=== PATIENT | male | born 1995 | race Caucasian/White ===

== ENCOUNTER 2017-02-15 23:04 | Inpatient (IN) ==
[2017-02-16 00:10] LABS: Bilirubin,Urine Negative (Negative); Blood,Urine Negative (Negative); Clarity,Urine Clear (Clear); Color,Urine Yellow (Yellow); Glucose,Urine (UA) Normal (Normal); Ketones,Urine Negative (Negative); Leukocyte Esterase,Urine Negative (Negative); Nitrite,Urine Negative (Negative); Protein,Urine Negative (Neg-Trace); Specific Gravity,Urine 1.009 (1.010-1.025); Urobilinogen,Urine Normal (Normal)
[2017-02-16 00:15] LABS: Amphetamine Screen,Urine Negative ng/mL (Cutoff=1000); Barbiturate Screen,Urine Negative ng/mL (Cutoff=200); Benzodiazepines Screen,Urine Negative ng/mL (Cutoff=200); Cannabinoid Screen,Urine Positive ng/mL (Cutoff = 50); Cocaine Screen,Urine Negative ng/mL (Cutoff= 300); Opiate Screen,Urine Negative ng/mL (Cutoff=300); Phencyclidine Screen,Urine Negative ng/mL (Cutoff=25)
[2017-02-16 00:23] LABS: Basophils % 0.3 %; Eosinophils # 0.1 K/mcL (0.0-0.6); Eosinophils % 0.4 %; Hematocrit 46.5 % (37.5-50.1); Hemoglobin 16.6 g/dL (12.9-16.9); Immature Granulocytes % 0.6 % (0-4); Lymphocytes % 19.5 %; Mean Corpuscular HGB Conc 35.7 g/dL (31.6-35.5); Mean Corpuscular Hemoglobin 29.9 pg (28.0-33.3); Mean Corpuscular Volume 83.8 fL (83.0-100.0); Mean Platelet Volume 10.8 fL (9.4-12.4); Monocytes # 1.2 K/mcL (0.0-1.3); Monocytes % 7.5 %; Neutrophils # 11.2 K/mcL (1.6-8.9); Platelet Count 245 K/mcL (140-400); Red Blood Count 5.55 M/mcL (4.19-5.50); Segmented Neutrophils % 71.7 %
[2017-02-16 00:35] LABS: BUN/Creatinine Ratio 7 (6-26); Blood Urea Nitrogen 6 mg/dL (8-26); Calcium 9.4 mg/dL (8.6-10.8); Carbon Dioxide 22 mEq/L (19-29); Chloride 104 mEq/L (98-109); Glucose 96 mg/dL (70-99); Osmolality,Calculated 285 (280-300); Potassium 3.4 mEq/L (3.5-4.5); Sodium 139 mEq/L (136-145); eGFR For African Americans > 60 (> 60); eGFR For Non-African Americans > 60 (> 60)
[2017-02-16 00:54] LABS: Acetaminophen < 1.0 mcg/mL (10-30); Ethanol 12 mg/dL (0-10); Salicylate < 5.0 mg/dL (15-30)
--- NOTE | 2017-02-16 02:23 | Emergency Department Note ---
Disposition Clinical Impression: Schizoaffective disorder Qualifiers: Schizoaffective disorder type: unspecified Qualified Code(s): F25.9 - Schizoaffective disorder, unspecified Disposition: Admitted As Inpatient Condition: Good Time of Disposition: 02:24 General Adult HPI - General Chief complaint: ED Psychiatric Symptoms Stated complaint: "SI/Threating to Kill Parents" Time Seen by Provider: 02/15/17 23:58 Source: family Limitations: no limitations Nursing Notes Reviewed: Yes Vital Signs Reviewed: Yes - History of Present Illness HPI Narrative: Patient complaining of being manic for approximately 1 month. States he is not sleeping at night. Father in room stating that the patient threatened to kill him and his yesterday. Patient's only complaint currently is of a headache. Pain Scale: 7 - Related Data Allergies Allergy/AdvReac Type Severity Reaction Status Date / Time No Known Allergies Allergy Verified 02/15/17 23:30 All systems ED: reviewed and negative except as stated. Constitutional: Denies: fever, chills ENT ED: Denies: congestion Cardiovascular: Denies: chest pain, palpitations, dyspnea on exertion, syncope Respiratory: Denies: cough, dyspnea Gastrointestinal: Denies: abdominal pain, nausea, vomiting, diarrhea, hematemesis, melena, hematochezia Genitourinary: Denies: urgency, dysuria, frequency, hematuria Musculoskeletal: Denies: back pain, neck pain Integumentary: Denies: rash Neurological: Reports: headache. Denies: weakness, numbness Psychiatric: Reports: homicidal thoughts. Denies: suicidal thoughts, auditory hallucinations, visual hallucinations Past Medical History - Past Medical History Medical history: Reports: no medical history Psychiatric history: Reports: schizophrenia, previous psychiatric hospitalization - Social History Smoking Status: Current every day smoker Alcohol use: Reports: occasionally Drug use: Reports: none Physical Exam - General Limitations: no limitations General appearance: alert, in no apparent distress - Head Head exam: atraumatic, normocephalic, normal inspection - Eye Eye exam: Present: normal appearance, PERRL, EOMI. Absent: scleral icterus - ENT ENT exam: normal exam, normal oropharynx, mucous membranes moist - Neck Neck exam: Present: normal inspection, full ROM, trachea midline. Absent: tenderness, meningismus, lymphadenopathy - Chest Chest inspection: Present: normal inspection - Respiratory Respiratory exam: Present: normal lung sounds bilaterally. Absent: respiratory distress - Cardiovascular Cardiovascular exam: Present: regular rate, normal rhythm, normal heart sounds - Abdominal Exam Abdominal exam: Present: soft, Non-Tender, normal bowel sounds. Absent: tenderness, distention, guarding, rebound, rigidity - Extremities Exam Extremities exam: Present: normal inspection, full ROM, normal capillary refill. Absent: tenderness, pedal edema - Back Exam Back exam: Present: normal inspection, full ROM. Absent: tenderness - Neurological Exam Neurological exam: Present: alert, oriented X3 - Psychiatric Psychiatric exam: Present: manic, homicidal ideation - Skin Skin exam: Present: warm, dry, intact, normal color. Absent: rash, cyanosis Course Course Narrative: Patient presenting to the emergency department with father. He complained of a headache. States he does have a history of schizoaffective disorder that he has been on several different medications for. He is currently on Haldol for this. He states that he has had shama for the past proximally one month. He states he is not sleeping at night. The father reports that yesterday he threatened to kill his mother and father. The patient does not deny this. He states he feels safe while here he has no suicidal or homicidal intentionally is sitting in the bed in the hospital. He states he does have but denies shortness of breath or chest pain or fevers. He has no medical complaints other than the headache. We will get a basic workup on patient and contact [facility]. During exam patient's eyes do not make contact frequently with mine. They are frantically searching the room. - Reevaluation(s) Reevaluation #1: [facility]A has recommended inpatient psychiatric care for the patient. We will slip him and keep him in the hospital. Time: 02:23 Vital Signs Temperature 98 F 02/15/17 23:25 Pulse Rate 115 02/15/17 23:25 Respiratory Rate 16 02/15/17 23:25 Blood Pressure 143/82 02/15/17 23:25 O2 Sat by Pulse Oximetry 97 02/15/17 23:25 Temperature 97 F L 02/16/17 02:54 Pulse Rate 79 02/16/17 02:54 Respiratory Rate 16 02/16/17 02:54 Blood Pressure 138/95 02/16/17 02:54 O2 Sat by Pulse Oximetry 97 02/15/17 23:25 Oxygen Delivery Oxygen Delivery Room Air Medical Decision Making - Medical Records Medical records reviewed: Yes I reviewed the patient's medical records. - Lab Data Lab results reviewed: Yes I reviewed the patient's lab results. Result diagrams: 02/16/17 00:18 02/16/17 00:18 Lab Results 02/15/17 02/15/17 02/16/17 Range/Units 23:50 23:50 00:18 WBC 15.5 H (4.3-11.1) K/mcL RBC 5.55 H (4.19-5.50) M/mcL Hgb 16.6 (12.9-16.9) g/dL Hct 46.5 (37.5-50.1) % MCV 83.8 (83.0-100.0) fL MCH 29.9 (28.0-33.3) pg MCHC 35.7 H (31.6-35.5) g/dL RDW 13.0 (11.5-14.5) % Plt Count 245 (140-400) K/mcL MPV 10.8 (9.4-12.4) fL Immature Gran % 0.6 (0-4) % Seg Neutrophils % 71.7 % Lymphocytes % 19.5 % Monocytes % 7.5 % Eosinophils % 0.4 % Basophils % 0.3 % Neutrophils # 11.2 H (1.6-8.9) K/mcL Lymphocytes # 3.0 (0.6-4.6) K/mcL Monocytes # 1.2 (0.0-1.3) K/mcL Eosinophils # 0.1 (0.0-0.6) K/mcL Basophils # 0.0 (0.0-0.2) K/mcL Sodium (136-145) mEq/L Potassium (3.5-4.5) mEq/L Chloride (98-109) mEq/L Carbon Dioxide (19-29) mEq/L BUN (8-26) mg/dL Creatinine (0.72-1.25) mg/dL Est GFR ( Amer) (> 60) Est GFR (Non-Af Amer) (> 60) BUN/Creatinine Ratio (6-26) Glucose (70-99) mg/dL Calculated Osmolality (280-300) Calcium (8.6-10.8) mg/dL Urine Color Yellow (Yellow) Urine Clarity Clear (Clear) Urine pH 6.0 (5.0-8.0) pH Units Ur Specific [place] 1.009 L (1.010-1.025) Urine Protein Negative (Neg-Trace) mg/dL Urine Glucose (UA) Normal (Normal) mg/dL Urine Ketones Negative (Negative) mg/dL Urine Blood Negative (Negative) Urine Nitrite Negative (Negative) Urine Bilirubin Negative (Negative) Urine Urobilinogen Normal (Normal) mg/dL Ur Leukocyte Esterase Negative (Negative) Salicylates (15-30) mg/dL Urine Opiates Screen Negative (Seedre=487) ng/mL Acetaminophen (10-30) mcg/mL Ur Barbiturates Screen Negative (Awnidw=537) ng/mL Ur Phencyclidine Scrn Negative (Cutoff=25) ng/mL Ur Amphetamines Screen Negative (Fsorzr=2153) ng/mL U Benzodiazepines Scrn Negative (Szqbkt=111) ng/mL Urine Cocaine Screen Negative (Cutoff= 300) ng/mL U Marijuana (THC) Screen Positive H (Cutoff = 50) ng/mL Ethyl Alcohol (0-10) mg/dL 02/16/17 Range/Units 00:18 WBC (4.3-11.1) K/mcL RBC (4.19-5.50) M/mcL Hgb (12.9-16.9) g/dL Hct (37.5-50.1) % MCV (83.0-100.0) fL MCH (28.0-33.3) pg MCHC (31.6-35.5) g/dL RDW (11.5-14.5) % Plt Count (140-400) K/mcL MPV (9.4-12.4) fL Immature Gran % (0-4) % Seg Neutrophils % % Lymphocytes % % Monocytes % % Eosinophils % % Basophils % % Neutrophils # (1.6-8.9) K/mcL Lymphocytes # (0.6-4.6) K/mcL Monocytes # (0.0-1.3) K/mcL Eosinophils # (0.0-0.6) K/mcL Basophils # (0.0-0.2) K/mcL Sodium 139 (136-145) mEq/L Potassium 3.4 L (3.5-4.5) mEq/L Chloride 104 (98-109) mEq/L Carbon Dioxide 22 (19-29) mEq/L BUN 6 L (8-26) mg/dL Creatinine 0.86 (0.72-1.25) mg/dL Est GFR ( Amer) > 60 (> 60) Est GFR (Non-Af Amer) > 60 (> 60) BUN/Creatinine Ratio 7 (6-26) Glucose 96 (70-99) mg/dL Calculated Osmolality 285 (280-300) Calcium 9.4 (8.6-10.8) mg/dL Urine Color (Yellow) Urine Clarity (Clear) Urine pH (5.0-8.0) pH Units Ur Specific [place] (1.010-1.025) Urine Protein (Neg-Trace) mg/dL Urine Glucose (UA) (Normal) mg/dL Urine Ketones (Negative) mg/dL Urine Blood (Negative) Urine Nitrite (Negative) Urine Bilirubin (Negative) Urine Urobilinogen (Normal) mg/dL Ur Leukocyte Esterase (Negative) Salicylates < 5.0 L (15-30) mg/dL Urine Opiates Screen (Ajyxrq=708) ng/mL Acetaminophen < 1.0 L (10-30) mcg/mL Ur Barbiturates Screen (Cqernb=145) ng/mL Ur Phencyclidine Scrn (Cutoff=25) ng/mL Ur Amphetamines Screen (Rrhsbi=9813) ng/mL U Benzodiazepines Scrn (Ipddaj=669) ng/mL Urine Cocaine Screen (Cutoff= 300) ng/mL U Marijuana (THC) Screen (Cutoff = 50) ng/mL Ethyl Alcohol 12 H (0-10) mg/dL Attestation Statement - Attestation Attestation: I, Sarbjit Javed MD, personally evaluated this patient and discussed their management with the resident physician. I reviewed the resident's note and agree with the documented findings, medical decision making, and plan of care. 21-year-old male presents to the emergency department for anxiety and apparently threatened to kill his parents yesterday. He denies any suicidal or homicidal ideation to me. His only complaint is migraine headache. On examination patient is a well-developed well-nourished male in no acute distress. He is alert and cooperative. There is no cyanosis or diaphoresis. Breath sounds are clear and equal bilaterally. Heart regular rate and rhythm. Abdomen soft and nontender with normal bowel sounds. No gross focal neurological deficits. Labs reviewed. [facility] psychiatry service was consulted and evaluated patient in the emergency department and the patient is being admitted to the [facility] psychiatry unit.
[2017-02-16] MEDS ORDERED: Mag Hydrox/Al Hydrox/Simeth 30 ML UDC PO PRN (02:38)
[2017-02-16] MEDS ORDERED: MOM Conc 10 ML UD.LIQ PO PRN (02:38)
[2017-02-16] MEDS ORDERED: hydrOXYzine pamoate 25 MG CAPSULE PO PRN (02:38)
[2017-02-16] MEDS ORDERED: *HR* LORazepam 2 MG/ML VIAL IM PRN (02:38)
[2017-02-16] MEDS ORDERED: Haloperidol Lactate 5 MG/ML VIAL IM PRN (02:38)
[2017-02-16] MEDS ORDERED: Acetaminophen 325 MG TABLET PO PRN (02:38)
[2017-02-16] MEDS ORDERED: OLANZapine 10 MG TAB.RAPDIS PO ONE (02:45)
[2017-02-16] MEDS: traZODone 50 MG TABLET PO PRN ×2 (03:16→20:05)
--- NOTE | 2017-02-16 14:36 | Psychiatry History & Physical ---
Date of Encounter: 02/16/17 Time of Encounter: 12:55 History of Present Illness Patient Stated Chief Complaint: "I had a headache." Medicare Admission Attestation: For traditional Medicare patients the provided hospital inpatient services are reasonable and necessary and in the case of services not specified as inpatient -only under 42 CFR 419.22 (n), that they are appropriately provided as inpatient services in accordance 42 CFR 412.3. For Critical Access Hospital the patient may reasonably be expected to be discharged or transferred to a hospital within 96 hours after admission to the Critical Access Hospital. Admitted From: Emergency Dept History of Present Illness: Mr. No is a 21 year old male with a history of schizophrenia who presents to the hospital initially through the ER because his parents had concerns about his behaviors. Patient was apparently acting oddly at home and threatened to kill his parents. His parents had concerns about his behaviors and brought him to the ER. Patient reports he has been admitted to a couple of different hospitals for psychiatric reasons but he denies auditory hallucinations or paranoia. He is very suspicious and irritable with staff. He does appear to be thought blocking at times to the of the interview. He is somewhat disorganized in his thought process. He reported to one staff member that he was taking his medications and another staff member he reported he has not been taking his Depakote. Patient's father was called by was not available to discuss patient's mental state over the last few weeks. Patient is somewhat hesitant to speak to this provider. He did mention to one staff member that he might try to hurt himself if he is not allowed to leave the hospital. He denies any homicidal ideations. He denies making comments about wanting to hurt his parents yesterday before his arrival to the hospital. He is on Haldol by mouth and decanoate shot as well. Past Med Surg Social Fam HX - Past Medical History Medical history: no medical history - Past Psychiatric History Psychiatric history: Reports: schizophrenia, previous psychiatric hospitalization Past psychiatric history details: Patient has 2 previous hospitalizations for schizophrenia. Family psychiatric history: No Family History of Suicide: None - Past Surgical History Surgical History: no surgical history - Social History Smoking Status: Current every day smoker Smokeless Tobacco Status: No Alcohol use: occasionally Drug use: none Occupational status: unemployed Current living situation: With Family Medications & Allergies Divalproex (24 HR) [Depakote ER (24 HR)] 1,000 mg PO HS 02/16/17 [History] Haloperidol Decanoate [Haldol Decanoate 100] 100 mg IM Q3W 02/16/17 [History] Haloperidol [Haldol] 10 mg PO BID 02/16/17 [History] HydrOXYzine 10 mg PO BID PRN 02/16/17 [History] Allergies No Known Allergies Allergy (Verified 02/15/17 23:30) Review of Systems Constitutional: Denies: fever, chills, weakness, weight change Eyes: Denies: eye pain, vision change Ears, Nose, Throat: Denies: ear pain, throat pain, dental pain, hearing loss, congestion Cardiovascular: Denies: chest pain, palpitations, dyspnea on exertion Respiratory: Denies: cough, dyspnea, wheezes Gastrointestinal: Denies: abdominal pain, nausea, vomiting, diarrhea, constipation Genitourinary male: Denies: urgency, dysuria, frequency, genital lesions Genitourinary female: Denies: urgency, dysuria, frequency, abnormal menses, dyspareunia Musculoskeletal: Denies: joint swelling, joint pain Integumentary: Denies: rash, lesions, pruritus Neurological: Reports: headache Psychiatric: Reports: homicidal ideation, auditory hallucinations, difficulty concentrating, irritability Endocrine: Denies: fatigue, heat or cold intolerance Hematologic/Lymphatic: Denies: easy bruising, lymphadenopathy Allergic/Immunologic: Denies: urticaria, itchy eyes Mental Status Exam Patient orientation: Yes Person, No Time, Yes Circumstance Level of alertness: Alert Patient appearance: Unkempt Behavior: uncooperative, guarded, suspicious Eye contact: Intense Contact Mood description: Euthymic/stable Affect description: flat, incongruent with mood Speech pattern: Slowed Speech volume: Normal Thought process: Thought Blocking Thought content: No Suicidal ideation, No Homicidal ideation Perceptual disturbances: Yes Auditory hallucinations Attention span: Capable of Focused Attention Memory description: Grossly Intact Patient reliability: Not Reliable Historian Intelligence estimate: Average Judgment: Limited Insight: Minimal Exam - HEENT Head exam IM: Present: atraumatic, normal inspection Eye exam IM: Present: normal appearance - Neurological Neurological exam IM: Present: alert, CN II-XII intact - Extremities Extremities exam IM: Present: full ROM - Skin Skin exam IM: Present: dry, warm Results - Vital Signs Vital signs: Temp Pulse Resp BP Pulse Ox 97.8 F 87 16 131/94 97 02/16/17 09:00 02/16/17 09:00 02/16/17 09:00 02/16/17 09:00 02/15/17 23:25 - Labs Labs: Laboratory Last Values WBC 15.5 K/mcL (4.3-11.1) H 02/16/17 00:18 RBC 5.55 M/mcL (4.19-5.50) H 02/16/17 00:18 Hgb 16.6 g/dL (12.9-16.9) 02/16/17 00:18 Hct 46.5 % (37.5-50.1) 02/16/17 00:18 MCV 83.8 fL (83.0-100.0) 02/16/17 00:18 MCH 29.9 pg (28.0-33.3) 02/16/17 00:18 MCHC 35.7 g/dL (31.6-35.5) H 02/16/17 00:18 RDW 13.0 % (11.5-14.5) 02/16/17 00:18 Plt Count 245 K/mcL (140-400) 02/16/17 00:18 MPV 10.8 fL (9.4-12.4) 02/16/17 00:18 Immature Gran % 0.6 % (0-4) 02/16/17 00:18 Seg Neutrophils % 71.7 % 02/16/17 00:18 Lymphocytes % 19.5 % 02/16/17 00:18 Monocytes % 7.5 % 02/16/17 00:18 Eosinophils % 0.4 % 02/16/17 00:18 Basophils % 0.3 % 02/16/17 00:18 Neutrophils # 11.2 K/mcL (1.6-8.9) H 02/16/17 00:18 Lymphocytes # 3.0 K/mcL (0.6-4.6) 02/16/17 00:18 Monocytes # 1.2 K/mcL (0.0-1.3) 02/16/17 00:18 Eosinophils # 0.1 K/mcL (0.0-0.6) 02/16/17 00:18 Basophils # 0.0 K/mcL (0.0-0.2) 02/16/17 00:18 Sodium 139 mEq/L (136-145) 02/16/17 00:18 Potassium 3.4 mEq/L (3.5-4.5) L 02/16/17 00:18 Chloride 104 mEq/L (98-109) 02/16/17 00:18 Carbon Dioxide 22 mEq/L (19-29) 02/16/17 00:18 BUN 6 mg/dL (8-26) L 02/16/17 00:18 Creatinine 0.86 mg/dL (0.72-1.25) 02/16/17 00:18 Est GFR ( Amer) > 60 (> 60) 02/16/17 00:18 Est GFR (Non-Af Amer) > 60 (> 60) 02/16/17 00:18 BUN/Creatinine Ratio 7 (6-26) 02/16/17 00:18 Glucose 96 mg/dL (70-99) 02/16/17 00:18 Calculated Osmolality 285 (280-300) 02/16/17 00:18 Calcium 9.4 mg/dL (8.6-10.8) 02/16/17 00:18 Urine Color Yellow (Yellow) 02/15/17 23:50 Urine Clarity Clear (Clear) 02/15/17 23:50 Urine pH 6.0 pH Units (5.0-8.0) 02/15/17 23:50 Ur Specific [place] 1.009 (1.010-1.025) L 02/15/17 23:50 Urine Protein Negative mg/dL (Neg-Trace) 02/15/17 23:50 Urine Glucose (UA) Normal mg/dL (Normal) 02/15/17 23:50 Urine Ketones Negative mg/dL (Negative) 02/15/17 23:50 Urine Blood Negative (Negative) 02/15/17 23:50 Urine Nitrite Negative (Negative) 02/15/17 23:50 Urine Bilirubin Negative (Negative) 02/15/17 23:50 Urine Urobilinogen Normal mg/dL (Normal) 02/15/17 23:50 Ur Leukocyte Esterase Negative (Negative) 02/15/17 23:50 Salicylates < 5.0 mg/dL (15-30) L 02/16/17 00:18 Urine Opiates Screen Negative ng/mL (Pxwrvb=738) 02/15/17 23:50 Acetaminophen < 1.0 mcg/mL (10-30) L 02/16/17 00:18 Ur Barbiturates Screen Negative ng/mL (Xkxwxd=303) 02/15/17 23:50 Ur Phencyclidine Scrn Negative ng/mL (Cutoff=25) 02/15/17 23:50 Ur Amphetamines Screen Negative ng/mL (Flgsgf=4391) 02/15/17 23:50 U Benzodiazepines Scrn Negative ng/mL (Nfgmni=943) 02/15/17 23:50 Urine Cocaine Screen Negative ng/mL (Cutoff= 300) 02/15/17 23:50 U Marijuana (THC) Screen Positive ng/mL (Cutoff = 50) H 02/15/17 23:50 Ethyl Alcohol 12 mg/dL (0-10) H 02/16/17 00:18 Assessment and Plan (1) Schizoaffective disorder Current visit: Yes Status: Acute Plan: Admit inpatient for safety and stabilization, Close observation, Suicide Precautions per unit protocol, Encourage participation in unit milieu, Group Therapy, Monitor sleep, Monitor appetite Additional Plan: We will admit to 1 a for psychiatric stabilization. Attempt to obtain records and also call family to get further information on patient's history as he is not forthcoming with this information. Depakote level tomorrow. We will restart home meds as it is unclear if patient was taking them appropriately. Risks, benefits, side effects, alternatives discussed w/pt: Yes Patient agreeable to treatment: Yes Estimated Length of Stay (Days): 4 Qualifiers: Schizoaffective disorder type: unspecified Qualified Code(s): F25.9 - Schizoaffective disorder, unspecified
[2017-02-16] MEDS: Nicotine 2 MG GUM BC PRN ×2 (18:04→20:04)
[2017-02-16] MEDS: Divalproex (24 HR) 500 MG TABLET PO SCH (20:05)
[2017-02-17] MEDS: Nicotine 2 MG GUM BC PRN ×3 (09:25→16:56)
--- NOTE | 2017-02-17 11:04 | Psychiatry Progress Note ---
Date of Encounter: 02/17/17 Time of Encounter: 09:30 Subjective Interval history: Patient seen today for follow-up of his schizoaffective disorder. He denies auditory or visual hallucinations but has been witnessed by staff responding to internal stimuli when alone in his room. Patient states he has been taking his meds as prescribed and discussed that his Depakote level was low and patient did not have a clear reason as to why this the case. He is willing to take his meds while in the hospital but seems hesitant to stay here on the unit and is very guarded when discussing his mental health history. Parents were contacted by staff today who reported that he was switched from Invega to Haldol about a year ago and his condition has worsened since he started the Haldol. The last 6 weeks the decanoate Haldol shot seems to make him worse. Patient's family have not been monitoring his medications because he had been doing better for a while. Therefore it is unclear how long patient may have been off his meds but the Depakote level indicates that the patient was not taking them as prescribed. Review of Systems Psychiatric: Reports: homicidal ideation, auditory hallucinations, difficulty concentrating, irritability Objective: Exam Patient orientation: Yes Person, Yes Circumstance Level of alertness: Alert Behavior: uncooperative, guarded, suspicious Psychomotor activity: Normal Eye contact: Fleeting Contact Mood description: Euthymic/stable Affect description: blunted Speech pattern: Normal rate, Normal rhythm, Normal tone Speech volume: Normal Thought process: Circumstantial Thought content: No Suicidal ideation, No Homicidal ideation Perceptual disturbances: Yes Reacting to internal stimuli, Yes Auditory hallucinations Judgment: Limited Insight: Minimal Results - Vital Signs Vital Signs: Temp Pulse Resp BP Pulse Ox 96.8 F L 84 18 149/106 97 02/17/17 09:00 02/17/17 09:00 02/17/17 09:00 02/17/17 09:00 02/15/17 23:25 - Labs Labs: Laboratory Results - last 24 hr 02/17/17 05:54 Valproic Acid 12.99 L Assessment and Plan (1) Schizoaffective disorder Current visit: Yes Status: Acute Plan: Continue hospitalization, Close observation, Suicide Precautions per unit protocol, Encourage participation in unit milieu, Group Therapy, Monitor sleep, Monitor appetite Additional Plan: We will continue Depakote and recheck level in a few days. We will taper Haldol and start second-generation antipsychotic like Abilify as patient did better on INvega than he has done on Haldol per his parents. Monitor for side effects and response to new medications. Risks, benefits, side effects, alternatives discussed w/pt: Yes Patient agreeable to treatment: Yes Qualifiers: Schizoaffective disorder type: unspecified Qualified Code(s): F25.9 - Schizoaffective disorder, unspecified Consult Discharge Plan - Plan Referrals: NO,PCP [Primary Care Provider] -
[2017-02-17] MEDS: *HR* LORazepam 1 MG TABLET PO PRN (13:49)
[2017-02-17] MEDS: ARIPiprazole 5 MG TABLET PO SCH (20:22)
[2017-02-17] MEDS: Divalproex (24 HR) 500 MG TABLET PO SCH (20:23)
--- NOTE | 2017-02-18 11:16 | Psychiatry Progress Note ---
Date of Encounter: 02/18/17 Time of Encounter: 11:14 Subjective Interval history: Patient is seen for follow-up. [facility] in medications reviewed. Staff patient is asking for discharge and anxious to go home. His Depakote level was very low and his medication is being switched from Haldol to Abilify. She denies any side effects. She is irritable and anxious and angry as contributing discharged, does not seem to be interested in treatment with taking medication. Denies suicidal and homicidal ideation. Review of Systems Psychiatric: Reports: homicidal ideation, auditory hallucinations, difficulty concentrating, irritability Objective: Exam Patient orientation: Yes Person, Yes Time, Yes Place Level of alertness: Alert Patient appearance: Appropriate, Well Groomed Behavior: cooperative, agitated, hostile Psychomotor activity: Normal Eye contact: No Eye Contact Mood description: Angry, Anxious, Irritable Affect description: congruent with mood, constricted, anxious Speech pattern: Normal rate, Normal rhythm, Normal tone Speech volume: Normal Thought process: Linear, Goal Oriented Thought content: No Suicidal ideation, No Homicidal ideation, No Overt delusions Perceptual disturbances: No Auditory hallucinations, No Visual hallucinations Judgment: Fair Insight: Partial Results - Vital Signs Vital Signs: Temp Pulse Resp BP Pulse Ox 97.5 F L 72 16 136/98 97 02/18/17 08:47 02/18/17 08:47 02/18/17 08:47 02/18/17 08:47 02/15/17 23:25 Assessment and Plan (1) Schizoaffective disorder Current visit: Yes Status: Acute Plan: Continue hospitalization, Close observation, Suicide Precautions per unit protocol, Encourage participation in unit milieu, Group Therapy, Monitor sleep, Monitor appetite Additional Plan: We will check a Depakote level Risks, benefits, side effects, alternatives discussed w/pt: Yes Patient agreeable to treatment: Yes Qualifiers: Schizoaffective disorder type: unspecified Qualified Code(s): F25.9 - Schizoaffective disorder, unspecified Consult Discharge Plan - Plan Referrals: NO,PCP [Primary Care Provider] -
[2017-02-18] MEDS: Nicotine 2 MG GUM BC PRN ×2 (11:28→20:18)
[2017-02-18] MEDS: Divalproex (24 HR) 500 MG TABLET PO SCH (20:08)
[2017-02-18] MEDS: ARIPiprazole 5 MG TABLET PO SCH (20:09)
[2017-02-19] MEDS: Nicotine 2 MG GUM BC PRN (11:21)
--- NOTE | 2017-02-19 15:37 | Psychiatry Progress Note ---
Date of Encounter: 02/19/17 Time of Encounter: 15:15 Subjective Interval history: Patient seen for follow-up. He is less anxious and more cooperative. His Depakote level is 38. compared to 12 on admission. He is vague and evasive about symptoms of psychosis and he repeatedly ask to be discharged and not interested in medication or treatment. Sister concerned regarding his admission and suicidal and homicidal ideation needed to be evaluated and family should be contacted to assure safety. Social work will be working on this with issues as part of discharge planning. Review of Systems Psychiatric: Reports: homicidal ideation, auditory hallucinations, difficulty concentrating, irritability Objective: Exam Patient orientation: Yes Person, Yes Time, Yes Place Level of alertness: Alert Patient appearance: Appropriate, Well Groomed Behavior: calm, cooperative, anxious, restless, impulsive Psychomotor activity: Increased Eye contact: Fleeting Contact Mood description: Anxious, Labile, Irritable Affect description: labile, anxious Speech pattern: Normal rate, Normal rhythm, Normal tone, Limited Speech volume: Normal Thought process: Linear, Goal Oriented, Circumstantial, [place] Thought content: No Suicidal ideation, No Homicidal ideation, No Overt delusions Perceptual disturbances: No Auditory hallucinations, No Visual hallucinations Judgment: Fair Insight: Partial Results - Vital Signs Vital Signs: Temp Pulse Resp BP Pulse Ox 96.3 F L 61 16 138/72 97 02/19/17 08:38 02/19/17 08:38 02/19/17 08:38 02/19/17 08:38 02/15/17 23:25 Assessment and Plan (1) Schizoaffective disorder Current visit: Yes Status: Acute Plan: Continue hospitalization, Close observation, Suicide Precautions per unit protocol, Encourage participation in unit milieu, Group Therapy, Monitor sleep, Monitor appetite Risks, benefits, side effects, alternatives discussed w/pt: Yes Patient agreeable to treatment: Yes Qualifiers: Schizoaffective disorder type: unspecified Qualified Code(s): F25.9 - Schizoaffective disorder, unspecified Consult Discharge Plan - Plan Referrals: NO,PCP [Primary Care Provider] -
[2017-02-19] MEDS: Divalproex (24 HR) 500 MG TABLET PO SCH (20:30)
[2017-02-19] MEDS: ARIPiprazole 5 MG TABLET PO SCH (20:30)
[2017-02-19] MEDS: *HR* LORazepam 1 MG TABLET PO PRN (20:30)
[2017-02-20 11:14] VITALS: BP 112/59
[2017-02-20] MEDS: Nicotine 2 MG GUM BC PRN (11:56)
--- NOTE | 2017-02-20 14:32 | Discharge Summary ---
Date of Encounter: 02/20/17 Time of Encounter: 14:00 Diagnosis - Discharge Diagnosis (1) Schizoaffective disorder Status: Acute Qualifiers: Schizoaffective disorder type: unspecified Qualified Code(s): F25.9 - Schizoaffective disorder, unspecified Medications - Discharge Medications Prescriptions: ARIPiprazole [Abilify] 5 mg PO HS #30 tablet Divalproex (24 HR) [Depakote ER (24 HR)] 1,000 mg PO HS #30 tab.er.24h Haloperidol [Haldol] 10 mg PO DAILY #60 tablet Haloperidol Decanoate [Haldol Decanoate 100] 100 mg IM Q3W 02/16/17 [History] HydrOXYzine 10 mg PO BID PRN 02/16/17 [History] ARIPiprazole [Abilify] 5 mg PO HS #30 tablet 02/20/17 [Rx] Divalproex (24 HR) [Depakote ER (24 HR)] 1,000 mg PO HS #30 tab.er.24h 02/20/17 [Rx] Haloperidol [Haldol] 10 mg PO DAILY #60 tablet 02/20/17 [Rx] Allergies No Known Allergies Allergy (Verified 02/15/17 23:30) Results Procedures and tests throughout hospitalization: Completed Lab Orders Category Date Time Status Valproate Routine Lab 02/17/17 05:54 Completed Valproate Routine Lab 02/18/17 11:34 Completed Provider Date of admission: 02/16/17 02:32 Primary care physician: PCP NO Discharging clinician: Jaguar Edmond Assessment and Plan - Patient/Caregiver Discharge Instructions Activity: resume usual activities as tolerated Diet: regular diet - Follow up Plan Follow up with: [facility] [Outside] - 02/22/17 2:30 pm (The above appointment is with Selvin Mitchell, psychiatric provider. You will also see nurse, Faiza Trejo, on 02/28/2017 at 9:00am.) Functional capacity at discharge: independent ambulation Overall status at discharge: Stable Disposition: Home, Self-Care Hospital Course Hospital course: Mr. No is a 21 year old male admitted for suicidal and homicidal ideation and noncompliance with medication. For details of the admission please see H&P On the units patient was initially irritable and agitated and paranoid. He was uncooperative and isolated himself. His Depakote level on admission was 12 second level was 38 proving his noncompliance. His Haldol was reduced and Abilify was added. He tolerated the medication changes he was more cooperative and compliant with medication and attended groups. production utility worker contacted his family and shared with them discharge plans and recommendations for safety and compliance. On discharge the patient was medically stable, pleasant and cooperative, denies suicidal or homicidal ideation and future oriented planning to play guitar and write songs. - Time Spent with Patient Total time spent providing and/or coordinating discharge services: Greater than 30 minutes Quality - Multiple Antipsychotics Patient discharged on 2 or more antipsychotic medications: Yes - Justification Documentation of: Cross-taper in progress at time of discharge (Plan is to taper his Haldol and continue with Abilify) Procedures - Procedures Procedures: Medication Management, Crisis Stabilization, Supportive Therapy, Group Therapy, Psychoeducational Therapy Mental Status Exam - Mental Status Exam Patient orientation: Yes Person, Yes Time, Yes Place Level of alertness: Alert Patient appearance: Appropriate, Well Groomed Behavior: calm, cooperative Psychomotor activity: Normal Eye contact: Maintains Eye Contact Mood description: Euthymic/stable Affect description: congruent with mood, full range Speech pattern: Normal rate, Normal rhythm, Normal tone Speech Volume: Normal Thought process: Linear, Goal Oriented Thought Content: No Suicidal ideation, No Homicidal ideation, No Overt delusions Perceptual Disturbances: No Auditory hallucinations, No Visual hallucinations Judgment: Limited Insight: Partial
== END 2017-02-20 17:15 | disposition home or self-care (01) | DRG 750 ==
LOC: EMEROO 23:04 → SUATTDRO 02-16 02:32 → 1ANU 02-16 02:32
PROVIDERS: ADMIT Student in an Organized Health Care Education/Training Program; ATTEND Psychiatry & Neurology Psychiatry

== ENCOUNTER 2017-06-01 21:51 | Inpatient (IN) ==
--- NOTE | 2017-06-01 22:07 | Emergency Department Note ---
Disposition Clinical Impression: History of schizophrenia, Abnormal behavior, Visual hallucinations, Auditory hallucinations Disposition: Admitted As Inpatient Condition: Good Time of Disposition: 01:04 (admitted to 1A) Psych HPI - General Chief Complaint: ED Psychiatric Symptoms Stated Complaint: strange behavior, psych consult Time Seen by Provider: 06/01/17 21:57 Source: patient Mode of arrival: ambulatory Limitations: no limitations Nursing Notes Reviewed: Yes Vital Signs Reviewed: Yes - History of Present Illness HPI Narrative: Patient is a 21-year-old male with past medical history of schizoaffective disorder. Father accompanies him and states the patient usually takes Depakote , Abilify, Haldol. He has not missed any medicine doses. Father states the for the past week or so, the patient has had very odd behavior. He is found him multiple times with his clothes completely off, a few times standing in the window exposing himself, odd thinking, talking to things that are not there, hearing voices. He has been found in the middle of the road twice. Father denies that the patient has complained of any other symptoms such as chest pain , shortness of breath, fevers, abdominal pain, nausea, vomiting. [facility] He was supposed to follow-up with them on Saturday to discuss medication changes. They are currently in the process of decreasing one medication and increasing Abilify dosing. Father is concerned for patient's safety with new behavior. The patient would not answer any questions for me. When I asked general questions, he he had tangential thoughts. When asked if he had chest pain or shortness of breath, the patient stated "I saw a piece of paper. There's a golf course across the street." All answers were tangential such as this. - Related Data Home Medications Medication Instructions Recorded Confirmed ARIPiprazole [Abilify] 10 mg PO HS 06/02/17 06/02/17 Haloperidol [Haldol] 5 mg PO BID 06/02/17 06/02/17 cloNIDine HCl [CloNIDine HCl] 0.1 mg PO HS 06/02/17 06/02/17 Previous Rx's Medication Instructions Recorded Divalproex (24 HR) [Depakote ER 1,000 mg PO HS #30 tab.er.24h 02/20/17 (24 HR)] Allergies Allergy/AdvReac Type Severity Reaction Status Date / Time No Known Allergies Allergy Verified 06/01/17 21:56 Limitations: ROS unobtainable due to patients medical condition Past Medical History - Past Medical History Attestation: Yes The following information was validated with the patient. Source: patient Medical history: Reports: no medical history Surgical history: Reports: no surgical history Psychiatric history: Reports: schizophrenia, previous psychiatric hospitalization - Social History Smoking Status: Current every day smoker Smokeless Tobacco Status: No Alcohol use: Reports: occasionally Drug use: Reports: none Physical Exam - General Limitations: no limitations General appearance: alert - Head Head exam: atraumatic, normocephalic, normal inspection - Eye Eye exam: Present: normal appearance, PERRL, EOMI - ENT ENT exam: normal exam, normal oropharynx, mucous membranes moist - Neck Neck exam: Present: normal inspection, full ROM, trachea midline - Chest Chest inspection: Present: normal inspection, symmetric chest wall rise - Respiratory Respiratory exam: Present: normal lung sounds bilaterally - Cardiovascular Cardiovascular exam: Present: regular rate, normal rhythm, normal heart sounds - Abdominal Exam Abdominal exam: Present: soft, Non-Tender. Absent: tenderness, distention, guarding, rebound, rigidity - Extremities Exam Extremities exam: Present: normal inspection, full ROM. Absent: pedal edema - Neurological Exam Neurological exam: Present: alert - Psychiatric Psychiatric exam: Present: other (tangential thinking, averts gaze, looking at the ceiling, mumbling to self; will not answer any questions for me; flat affect. ) - Skin Skin exam: Present: warm, dry, intact, normal color Course Course Narrative: Patient was hypertensive. The rest of the vitals within normal limits. Physical exam benign except for: tangential thinking, averts gaze, looking at the ceiling, mumbling to self; will not answer any questions for me; flat affect. Will obtain medical clearance labs and then consult behavioral health team. 13:02 patient was medically cleared. He was seen and evaluated by him behavioral health. They have admitted the patient for further care. Vital Signs Temperature 98.3 F 06/01/17 21:53 Pulse Rate 91 06/01/17 21:53 Respiratory Rate 16 06/01/17 21:53 Blood Pressure 161/97 06/01/17 21:53 O2 Sat by Pulse Oximetry 99 06/01/17 21:53 Temperature 98.3 F 09/09/17 21:53 Pulse Rate 91 06/01/17 21:53 Respiratory Rate 16 06/01/17 21:53 Blood Pressure 161/97 06/01/17 21:53 O2 Sat by Pulse Oximetry 99 06/01/17 21:53 Oxygen Delivery Oxygen Delivery Room Air Psych - MDM Narrative Medical decision making narrative: patient was medically cleared. He was seen and evaluated by him behavioral health. They have admitted the patient for further care for schizophrenia - Lab Data Lab results reviewed: Yes I reviewed the patient's lab results. Result diagrams: 06/01/17 22:04 06/01/17 22:07 Lab Results 06/01/17 06/01/17 06/01/17 Range/Units 22:04 22:04 22:04 WBC 16.3 H (4.3-11.1) K/mcL RBC 5.25 (4.19-5.50) M/mcL Hgb 15.7 (12.9-16.9) g/dL Hct 45.9 (37.5-50.1) % MCV 87.4 (83.0-100.0) fL MCH 29.9 (28.0-33.3) pg MCHC 34.2 (31.6-35.5) g/dL RDW 12.8 (11.5-14.5) % Plt Count 198 (140-400) K/mcL MPV 11.0 (9.4-12.4) fL Immature Gran % 0.3 (0-4) % Seg Neutrophils % 73.2 % Lymphocytes % 19.9 % Monocytes % 5.8 % Eosinophils % 0.6 % Basophils % 0.2 % Neutrophils # 11.9 H (1.6-8.9) K/mcL Lymphocytes # 3.3 (0.6-4.6) K/mcL Monocytes # 1.0 (0.0-1.3) K/mcL Eosinophils # 0.1 (0.0-0.6) K/mcL Basophils # 0.0 (0.0-0.2) K/mcL Sodium (136-145) mEq/L Potassium (3.5-4.5) mEq/L Chloride (98-109) mEq/L Carbon Dioxide (19-29) mEq/L BUN (8-26) mg/dL Creatinine (0.72-1.25) mg/dL Est GFR ( Amer) (> 60) Est GFR (Non-Af Amer) (> 60) BUN/Creatinine Ratio (6-26) Glucose (70-99) mg/dL Calculated Osmolality (280-300) Calcium (8.6-10.8) mg/dL Urine Color Yellow (Yellow) Urine Clarity Slightly Hazy (Clear) Urine pH 7.0 (5.0-8.0) pH Units Ur Specific [place] 1.014 (1.010-1.025) Urine Protein Negative (Neg-Trace) mg/dL Urine Glucose (UA) Normal (Normal) mg/dL Urine Ketones Negative (Negative) mg/dL Urine Blood Negative (Negative) Urine Nitrite Negative (Negative) Urine Bilirubin Negative (Negative) Urine Urobilinogen Normal (Normal) mg/dL Ur Leukocyte Esterase Negative (Negative) Urine Microscopic RBC 0-3 (0-3) per hpf Ur Squamous Epith Cells None Seen (None-Few) per lpf Urine Bacteria None Seen (None-Few) per hpf Hyaline Casts None Seen (None-Few) per lpf Salicylates (15-30) mg/dL Urine Opiates Screen Negative (Jeycuk=574) ng/mL Acetaminophen (10-30) mcg/mL Ur Barbiturates Screen Negative (Rfcfft=157) ng/mL Valproic Acid (50-100) mcg/mL Ur Phencyclidine Scrn Negative (Cutoff=25) ng/mL Ur Amphetamines Screen Negative (Wozqjx=4552) ng/mL U Benzodiazepines Scrn Negative (Xiheff=278) ng/mL Urine Cocaine Screen Negative (Cutoff= 300) ng/mL U Marijuana (THC) Screen Negative (Cutoff = 50) ng/mL Ethyl Alcohol (0-10) mg/dL 06/01/17 Range/Units 22:07 WBC (4.3-11.1) K/mcL RBC (4.19-5.50) M/mcL Hgb (12.9-16.9) g/dL Hct (37.5-50.1) % MCV (83.0-100.0) fL MCH (28.0-33.3) pg MCHC (31.6-35.5) g/dL RDW (11.5-14.5) % Plt Count (140-400) K/mcL MPV (9.4-12.4) fL Immature Gran % (0-4) % Seg Neutrophils % % Lymphocytes % % Monocytes % % Eosinophils % % Basophils % % Neutrophils # (1.6-8.9) K/mcL Lymphocytes # (0.6-4.6) K/mcL Monocytes # (0.0-1.3) K/mcL Eosinophils # (0.0-0.6) K/mcL Basophils # (0.0-0.2) K/mcL Sodium 138 (136-145) mEq/L Potassium 3.6 (3.5-4.5) mEq/L Chloride 103 (98-109) mEq/L Carbon Dioxide 26 (19-29) mEq/L BUN 12 (8-26) mg/dL Creatinine 0.85 (0.72-1.25) mg/dL Est GFR ( Amer) > 60 (> 60) Est GFR (Non-Af Amer) > 60 (> 60) BUN/Creatinine Ratio 14 (6-26) Glucose 84 (70-99) mg/dL Calculated Osmolality 285 (280-300) Calcium 9.2 (8.6-10.8) mg/dL Urine Color (Yellow) Urine Clarity (Clear) Urine pH (5.0-8.0) pH Units Ur Specific [place] (1.010-1.025) Urine Protein (Neg-Trace) mg/dL Urine Glucose (UA) (Normal) mg/dL Urine Ketones (Negative) mg/dL Urine Blood (Negative) Urine Nitrite (Negative) Urine Bilirubin (Negative) Urine Urobilinogen (Normal) mg/dL Ur Leukocyte Esterase (Negative) Urine Microscopic RBC (0-3) per hpf Ur Squamous Epith Cells (None-Few) per lpf Urine Bacteria (None-Few) per hpf Hyaline Casts (None-Few) per lpf Salicylates < 5.0 L (15-30) mg/dL Urine Opiates Screen (Pfmccl=655) ng/mL Acetaminophen < 1.0 L (10-30) mcg/mL Ur Barbiturates Screen (Ncbihh=641) ng/mL Valproic Acid 20.60 L (50-100) mcg/mL Ur Phencyclidine Scrn (Cutoff=25) ng/mL Ur Amphetamines Screen (Ojkmmi=9706) ng/mL U Benzodiazepines Scrn (Sjsjrp=517) ng/mL Urine Cocaine Screen (Cutoff= 300) ng/mL U Marijuana (THC) Screen (Cutoff = 50) ng/mL Ethyl Alcohol < 10 (0-10) mg/dL Psychiatric Medical Clearance - Medical Clearance Checklist Does the patient have a NEW psychiatric condition?: No Any abnormalities indicating possible medical illness?: No Any history of medical issues?: No Medical History: No Social History Section defined Any abnormal vital signs prior to transfer?: No Current Vitals: Last Vital Signs Temp 98.3 F 06/01/17 21:53 Pulse 91 06/01/17 21:53 Resp 16 06/01/17 21:53 BP 161/97 06/01/17 21:53 Pulse Ox 99 06/01/17 21:53 Is the patient intoxicated or cognitively impaired?: No Psychiatric Lab Panel: Drug Levels and Toxicity 06/01/17 06/01/17 22:04 22:07 Urine Opiates Screen Negative Acetaminophen < 1.0 L Ur Barbiturates Screen Negative Ur Phencyclidine Scrn Negative Ur Amphetamines Screen Negative U Benzodiazepines Scrn Negative Urine Cocaine Screen Negative U Marijuana (THC) Screen Negative Ethyl Alcohol < 10 Any abnormalities on the physical exam?: No Any abnormal labs?: Yes (mild elevation in WBC) Abnormal Labs: Abnormal lab results WBC 16.3 K/mcL (4.3-11.1) H 06/01/17 22:04 Neutrophils # 11.9 K/mcL (1.6-8.9) H 06/01/17 22:04 Salicylates < 5.0 mg/dL (15-30) L 06/01/17 22:07 Acetaminophen < 1.0 mcg/mL (10-30) L 06/01/17 22:07 Valproic Acid 20.60 mcg/mL (50-100) L 06/01/17 22:07 Does the patient require durable medical equiptment?: No Is the patient ambulatory?: No Is the patient a fall risk?: No Has the patient been medically cleared?: Yes Any acute medical condition require Tx prior to transfer?: No Statement of Medical Clearance: I have evaluated the patient, reviewed diagnostic information, and certify that the patient's medical condition is sufficiently stable that transfer to the psychiatric unit does not pose a significant risk of deterioration. Attestation Statement - Attestation Attestation: I examined this patient and my medical decision-making was reviewed with the Resident Physician. I agree with the documented findings, disposition and treatment plan as described except to the extent set forth below. Patient to ED. History of schizoaffective disorder. Has been found wandering in the road and walking around without clothes on. Compliant with meds. Exam shows him in no distress. Flat affect. Lungs clear abdomen soft. Plan. Medical clearance and 1A eval.
[2017-06-01 22:10] LABS: Basophils % 0.2 %; Eosinophils # 0.1 K/mcL (0.0-0.6); Eosinophils % 0.6 %; Hematocrit 45.9 % (37.5-50.1); Hemoglobin 15.7 g/dL (12.9-16.9); Immature Granulocytes % 0.3 % (0-4); Lymphocytes # 3.3 K/mcL (0.6-4.6); Lymphocytes % 19.9 %; Mean Corpuscular HGB Conc 34.2 g/dL (31.6-35.5); Mean Corpuscular Hemoglobin 29.9 pg (28.0-33.3); Mean Corpuscular Volume 87.4 fL (83.0-100.0); Monocytes % 5.8 %; Neutrophils # 11.9 K/mcL (1.6-8.9); Platelet Count 198 K/mcL (140-400); Red Blood Count 5.25 M/mcL (4.19-5.50); Red Cell Distribution Width 12.8 % (11.5-14.5); Segmented Neutrophils % 73.2 %
[2017-06-01 22:14] LABS: Bilirubin,Urine Negative (Negative); Blood,Urine Negative (Negative); Color,Urine Yellow (Yellow); Glucose,Urine (UA) Normal (Normal); Ketones,Urine Negative (Negative); Leukocyte Esterase,Urine Negative (Negative); Nitrite,Urine Negative (Negative); Protein,Urine Negative (Neg-Trace); Specific Gravity,Urine 1.014 (1.010-1.025); Urobilinogen,Urine Normal (Normal)
[2017-06-01 22:17] LABS: Bacteria,Urine None Seen per hpf (None-Few); Hyaline Casts,Urine None Seen per lpf (None-Few); RBC,Urine 0-3 per hpf (0-3); Squamous Epithelial Cell,Urine None Seen per lpf (None-Few)
[2017-06-01 22:18] LABS: Clarity,Urine Slightly Hazy (Clear)
[2017-06-01 22:19] LABS: Amphetamine Screen,Urine Negative ng/mL (Cutoff=1000); Barbiturate Screen,Urine Negative ng/mL (Cutoff=200); Benzodiazepines Screen,Urine Negative ng/mL (Cutoff=200); Cannabinoid Screen,Urine Negative ng/mL (Cutoff = 50); Cocaine Screen,Urine Negative ng/mL (Cutoff= 300); Opiate Screen,Urine Negative ng/mL (Cutoff=300); Phencyclidine Screen,Urine Negative ng/mL (Cutoff=25)
[2017-06-01 22:24] LABS: BUN/Creatinine Ratio 14 (6-26); Blood Urea Nitrogen 12 mg/dL (8-26); Calcium 9.2 mg/dL (8.6-10.8); Carbon Dioxide 26 mEq/L (19-29); Chloride 103 mEq/L (98-109); Glucose 84 mg/dL (70-99); Osmolality,Calculated 285 (280-300); Potassium 3.6 mEq/L (3.5-4.5); Sodium 138 mEq/L (136-145); eGFR For African Americans > 60 (> 60); eGFR For Non-African Americans > 60 (> 60)
[2017-06-01 22:25] LABS: Acetaminophen < 1.0 mcg/mL (10-30); Ethanol < 10 mg/dL (0-10); Salicylate < 5.0 mg/dL (15-30)
[2017-06-02] MEDS ORDERED: MOM Conc 10 ML UD.LIQ PO PRN (00:58)
[2017-06-02] MEDS ORDERED: Haloperidol Lactate 5 MG/ML VIAL IM PRN (00:58)
[2017-06-02] MEDS ORDERED: *HR* LORazepam 2 MG/ML VIAL IM PRN (00:58)
[2017-06-02] MEDS ORDERED: Acetaminophen 325 MG TABLET PO PRN (00:58)
[2017-06-02] MEDS ORDERED: Mag Hydrox/Al Hydrox/Simeth 30 ML UDC PO PRN (00:58)
[2017-06-02] MEDS: traZODone 50 MG TABLET PO PRN (01:22)
[2017-06-02] MEDS: cloNIDine HCl 0.1 MG TABLET PO SCH ×2 (01:22→20:07)
[2017-06-02] MEDS: ARIPiprazole 5 MG TABLET PO SCH ×2 (01:22→20:07)
[2017-06-02] MEDS: Divalproex (24 HR) 500 MG TABLET PO SCH ×2 (01:23→20:08)
[2017-06-02] MEDS: Nicotine 21 MG PATCH.TD24 TD SCH (09:57)
--- NOTE | 2017-06-02 12:09 | Psychiatry History & Physical ---
Date of Encounter: 06/02/17 Time of Encounter: 12:06 History of Present Illness Patient Stated Chief Complaint: "I do not know why I am here" Medicare Admission Attestation: For traditional Medicare patients the provided hospital inpatient services are reasonable and necessary and in the case of services not specified as inpatient -only under 42 CFR 419.22 (n), that they are appropriately provided as inpatient services in accordance 42 CFR 412.3. For Critical Access Hospital the patient may reasonably be expected to be discharged or transferred to a hospital within 96 hours after admission to the Critical Access Hospital. Admitted From: Emergency Dept Plans for Post Hospital Care: Home History of Present Illness: Mr. No is a 21 year old male who is known to us from recent hospitalization and is noted to have a history of schizoaffective disorder was brought to the emergency department by his parents because of inappropriate bizarre and psychotic behavior. Patient's father reported that patient was doing fairly well up until a couple of weeks ago when his outpatient psychiatrist made some changes in his medications. His Haldol was decreased from 10 mg twice a day to 5 mg twice a day and he was started on Abilify with the plan to discontinue Haldol and switched the patient on Abilify. Since this change father noticed that patient has been having a relapse of his symptoms where he is becoming extremely bizarre inappropriate and disinhibited. Patient has been walking naked outside his home and standing naked in the windows. Patient has not been sleeping well becoming more paranoid suspicious and delusional. He believes that "" is following him and he is walking backwards on his legs and is wanting to harm him. Patient was guarded and did not speak too much about his symptoms or the reasons that led to his hospitalization. Since patient was having a relapse of his symptoms and his unable to provide care for himself and indulging in inappropriate and disinhibited behavior was decided to hospitalize him at [facility] for further stabilization Past Med Surg Social Fam HX - Past Medical History Medical history: no medical history - Past Psychiatric History Psychiatric history: Reports: schizophrenia, previous psychiatric hospitalization Past psychiatric history details: Patient is noted to be diagnosed with schizoaffective disorder/schizophrenia. He has had prior hospitalizations. His last hospitalization was in January 2017. He has been receiving outpatient treatment and according to the family has been compliant with his medications. Family psychiatric history: No Family History of Suicide: None - Past Surgical History Surgical History: no surgical history - Social History Smoking Status: Current every day smoker Smokeless Tobacco Status: No Alcohol use: occasionally Drug use: none Occupational status: unemployed Current living situation: Home, With Family Activity Level: Independent ambulation Recent Out of Country Travel Within the Last 8 Weeks: No Exposure or Possible Exposure to Illness During Travel: No Additional social history: Patient is single and has no children. He is unemployed and is residing with his parents. He denies any legal issues. Medications & Allergies Divalproex (24 HR) [Depakote ER (24 HR)] 1,000 mg PO HS #30 [id number].er.[id number] 02/20/17 [Rx] ARIPiprazole [Abilify] 10 mg PO HS 06/02/17 [History] Haloperidol [Haldol] 5 mg PO BID 06/02/17 [History] cloNIDine HCl [CloNIDine HCl] 0.1 mg PO HS 06/02/17 [History] 3 Allergy/AdvReac Type Severity Reaction Status Date / Time No Known Allergies Allergy Verified 06/01/17 21:56 Review of Systems Psychiatric: Reports: anxiety, abnormal sleep pattern, confusion, difficulty concentrating Mental Status Exam Patient orientation: Yes Person, Yes Time, Yes Place Level of alertness: Sedated Patient appearance: Unkempt, Disheveled Behavior: uncooperative, guarded, suspicious, withdrawn Eye contact: Minimal Contact Mood description: Irritable Affect description: blunted, dysphoric Speech pattern: Slowed Speech volume: Soft/Quiet Thought process: Thought Blocking, [place], Slowed Thinking Thought content: Yes Overt delusions Perceptual disturbances: No Auditory hallucinations, No Visual hallucinations Attention span: Unable to Sustain Attention Memory description: Grossly Intact Patient reliability: Questionable Historian Intelligence estimate: Below Average Judgment: Limited Insight: Minimal Exam - HEENT Head exam IM: Present: normal inspection Eye exam IM: Present: normal appearance ENT exam IM: Present: mucous membranes moist, normal exam - Neurological Neurological exam IM: Present: alert, CN II-XII intact, normal gait, oriented X3 , reflexes normal, no focal deficits, strengths equal and symetr throughout. Absent: motor sensory deficit - Respiratory Respiratory exam IM: Absent: respiratory distress - GI/Abdominal GI/Abdominal exam IM: Present: normal bowel sounds - Extremities Extremities exam IM: Present: normal inspection - Skin Skin exam IM: Present: normal color Results - Vital Signs Vital signs: Temp Pulse Resp BP Pulse Ox 97.6 F 70 16 143/91 99 06/02/17 01:09 06/02/17 01:06/02/17 01:06/02/17 01:06/01/17 21:53 - Labs Labs: Laboratory Last Values WBC 16.3 K/mcL (4.3-11.1) H 06/01/17 22:04 RBC 5.25 M/mcL (4.19-5.50) 06/01/17 22:04 Hgb 15.7 g/dL (12.9-16.9) 06/01/17 22:04 Hct 45.9 % (37.5-50.1) 06/01/17 22:04 MCV 87.4 fL (83.0-100.0) 06/01/17 22:04 MCH 29.9 pg (28.0-33.3) 06/01/17 22:04 MCHC 34.2 g/dL (31.6-35.5) 06/01/17 22:04 RDW 12.8 % (11.5-14.5) 06/01/17 22:04 Plt Count 198 K/mcL (140-400) 06/01/17 22:04 MPV 11.0 fL (9.4-12.4) 06/01/17 22:04 Immature Gran % 0.3 % (0-4) 06/01/17 22:04 Seg Neutrophils % 73.2 % 06/01/17 22:04 Lymphocytes % 19.9 % 06/01/17 22:04 Monocytes % 5.8 % 06/01/17 22:04 Eosinophils % 0.6 % 06/01/17 22:04 Basophils % 0.2 % 06/01/17 22:04 Neutrophils # 11.9 K/mcL (1.6-8.9) H 06/01/17 22:04 Lymphocytes # 3.3 K/mcL (0.6-4.6) 06/01/17 22:04 Monocytes # 1.0 K/mcL (0.0-1.3) 06/01/17 22:04 Eosinophils # 0.1 K/mcL (0.0-0.6) 06/01/17 22:04 Basophils # 0.0 K/mcL (0.0-0.2) 06/01/17 22:04 Sodium 138 mEq/L (136-145) 06/01/17 22:07 Potassium 3.6 mEq/L (3.5-4.5) 06/01/17 22:07 Chloride 103 mEq/L (98-109) 06/01/17 22:07 Carbon Dioxide 26 mEq/L (19-29) 06/01/17 22:07 BUN 12 mg/dL (8-26) 06/01/17 22:07 Creatinine 0.85 mg/dL (0.72-1.25) 06/01/17 22:07 Est GFR ( Amer) > 60 (> 60) 06/01/17 22:07 Est GFR (Non-Af Amer) > 60 (> 60) 06/01/17 22:07 BUN/Creatinine Ratio 14 (6-26) 06/01/17 22:07 Glucose 84 mg/dL (70-99) 06/01/17 22:07 Calculated Osmolality 285 (280-300) 06/01/17 22:07 Calcium 9.2 mg/dL (8.6-10.8) 06/01/17 22:07 Urine Color Yellow (Yellow) 06/01/17 22:04 Urine Clarity Slightly Hazy (Clear) 06/01/17 22:04 Urine pH 7.0 pH Units (5.0-8.0) 06/01/17 22:04 Ur Specific [place] 1.014 (1.010-1.025) 06/01/17 22:04 Urine Protein Negative mg/dL (Neg-Trace) 06/01/17 22:04 Urine Glucose (UA) Normal mg/dL (Normal) 06/01/17 22:04 Urine Ketones Negative mg/dL (Negative) 06/01/17 22:04 Urine Blood Negative (Negative) 06/01/17 22:04 Urine Nitrite Negative (Negative) 06/01/17 22:04 Urine Bilirubin Negative (Negative) 06/01/17 22:04 Urine Urobilinogen Normal mg/dL (Normal) 06/01/17 22:04 Ur Leukocyte Esterase Negative (Negative) 06/01/17 22:04 Urine Microscopic RBC 0-3 per hpf (0-3) 06/01/17 22:04 Ur Squamous Epith Cells None Seen per lpf (None-Few) 06/01/17 22:04 Urine Bacteria None Seen per hpf (None-Few) 06/01/17 22:04 Hyaline Casts None Seen per lpf (None-Few) 06/01/17 22:04 Salicylates < 5.0 mg/dL (15-30) L 06/01/17 22:07 Urine Opiates Screen Negative ng/mL (Ivapup=676) 06/01/17 22:04 Acetaminophen < 1.0 mcg/mL (10-30) L 06/01/17 22:07 Ur Barbiturates Screen Negative ng/mL (Joidzy=048) 06/01/17 22:04 Valproic Acid 20.60 mcg/mL (50-100) L 06/01/17 22:07 Ur Phencyclidine Scrn Negative ng/mL (Cutoff=25) 06/01/17 22:04 Ur Amphetamines Screen Negative ng/mL (Tlupho=7621) 06/01/17 22:04 U Benzodiazepines Scrn Negative ng/mL (Lhpxlq=032) 06/01/17 22:04 Urine Cocaine Screen Negative ng/mL (Cutoff= 300) 06/01/17 22:04 U Marijuana (THC) Screen Negative ng/mL (Cutoff = 50) 06/01/17 22:04 Ethyl Alcohol < 10 mg/dL (0-10) 06/01/17 22:07 Assessment and Plan (1) Schizoaffective disorder Current visit: No Status: Acute Plan: Admit inpatient for safety and stabilization, Close observation, Suicide Precautions per unit protocol, Encourage participation in unit milieu, Group Therapy, Monitor sleep, Monitor appetite Additional Plan: We will increase the patient's Haldol back to 10 mg twice a day since he was doing fairly well on this dose. At this point we will continue patient's Abilify with the recommendation to taper and discontinue it. Risks, benefits, side effects, alternatives discussed w/pt: Yes Patient agreeable to treatment: Yes Plans for Post Hospital Care: Home Estimated Length of Stay (Days): 4 Qualifiers: Schizoaffective disorder type: unspecified Qualified Code(s): F25.9 - Schizoaffective disorder, unspecified
[2017-06-03] MEDS: Nicotine 21 MG PATCH.TD24 TD SCH (08:29)
--- NOTE | 2017-06-03 10:20 | Psychiatry Progress Note ---
Date of Encounter: 06/03/17 Time of Encounter: 09:40 Subjective Interval history: Cali is seen today for follow-up in previous notes and been reviewed. Patient presented to the hospital with paranoia and auditory hallucinations. He remains guarded about a lot of his symptoms. He is taking his medications. He denies any side effects of these meds but is very fixated on being out of the hospital by Saturday because "I have a tattoo appointment." He does not want to discuss what kind of tattoo he is getting or why. Patient states that he has been living with his parents prior to hospitalization. He is agreeable to continuing the Abilify taper at this time. He does appear to be responding to internal stimuli intermittently throughout the interview. Review of Systems ROS limited: due to patient condition Psychiatric: Reports: anxiety, abnormal sleep pattern, confusion, difficulty concentrating, irritability Objective: Exam Patient orientation: Yes Person, Yes Place Level of alertness: Alert Patient appearance: Unkempt, Disheveled Behavior: guarded, suspicious Psychomotor activity: Slowed Eye contact: Diverts Contact Mood description: Euthymic/stable Affect description: flat Speech pattern: Slowed Speech volume: Normal Thought process: Slowed Thinking Thought content: Yes Preoccupation, Yes Paranoid delusion, Yes Thought insertion Perceptual disturbances: Yes Reacting to internal stimuli, No Auditory hallucinations, No Visual hallucinations Judgment: Poor Insight: None Results - Vital Signs Vital Signs: Temp Pulse Resp BP Pulse Ox 96.8 F L 61 16 125/76 99 06/02/17 20:28 06/02/17 20:28 06/02/17 20:28 06/02/17 20:28 06/01/17 21:53 Assessment and Plan (1) Schizoaffective disorder Current visit: No Status: Acute Plan: Continue hospitalization, Close observation, Suicide Precautions per unit protocol, Encourage participation in unit milieu, Group Therapy, Monitor sleep, Monitor appetite Additional Plan: We will continue cross taper off Abilify for now. Monitor for any side effects of Haldol. We will coordinate with family about medications and possible issues with meds and compliance. Encourage positive coping strategies and participation in therapeutic milieu when possible. Risks, benefits, side effects, alternatives discussed w/pt: Yes Patient agreeable to treatment: Yes Qualifiers: Schizoaffective disorder type: unspecified Qualified Code(s): F25.9 - Schizoaffective disorder, unspecified Consult Discharge Plan - Plan Referrals: NONE,PCP [Primary Care Provider] -
[2017-06-03] MEDS: Divalproex (24 HR) 500 MG TABLET PO SCH (20:22)
[2017-06-03] MEDS: cloNIDine HCl 0.1 MG TABLET PO SCH (20:23)
[2017-06-03] MEDS: ARIPiprazole 5 MG TABLET PO SCH (20:23)
[2017-06-04] MEDS: Nicotine 21 MG PATCH.TD24 TD SCH (10:05)
--- NOTE | 2017-06-04 11:12 | Psychiatry Progress Note ---
Date of Encounter: 06/04/17 Review of Systems Psychiatric: Reports: anxiety, abnormal sleep pattern, confusion, difficulty concentrating, irritability Results - Vital Signs Vital Signs: Temp Pulse Resp BP Pulse Ox 98 F 48 98 122/56 99 06/04/17 09:00 06/04/17 09:00 06/04/17 09:00 06/04/17 09:00 06/01/17 21:53 Assessment and Plan (1) Schizoaffective disorder Current visit: No Status: Acute Risks, benefits, side effects, alternatives discussed w/pt: Yes Patient agreeable to treatment: Yes Qualifiers: Schizoaffective disorder type: unspecified Qualified Code(s): F25.9 - Schizoaffective disorder, unspecified Consult Discharge Plan - Plan Referrals: [facility] [Outside] - 06/07/17 9:30 am (The above appointment is with Umang Grande cyanide case hardener. You will also see Hilary Barnard CNP on 06/07/2017 at 10:00am.)
--- NOTE | 2017-06-04 11:18 | Psychiatry Progress Note ---
Date of Encounter: 06/04/17 Time of Encounter: 10:55 Subjective Interval history: Cali is seen today for follow-up. He remains agitated and irritable. He is very fixated on wanting to get a tattoo. He has little or no insight into his medications and needing to take meds outside of the hospital. He denies side effects of his current medications. He is still responding to internal stimuli and not able to participate meaningfully in group activities. Review of Systems Psychiatric: Reports: anxiety, abnormal sleep pattern, confusion, difficulty concentrating, irritability Objective: Exam Patient orientation: Yes Person, Yes Place Level of alertness: Alert Patient appearance: Unkempt Behavior: hostile, restless, uncooperative, guarded, suspicious Psychomotor activity: Increased Eye contact: Diverts Contact Mood description: Euthymic/stable Affect description: labile, inappropriate to situation Speech pattern: Slowed Speech volume: Normal Thought process: Thought Blocking Thought content: No Suicidal ideation, No Homicidal ideation Perceptual disturbances: Yes Reacting to internal stimuli, No Auditory hallucinations, No Visual hallucinations Judgment: Poor Insight: None Results - Vital Signs Vital Signs: Temp Pulse Resp BP Pulse Ox 98 F 48 98 122/56 99 06/04/17 09:00 06/04/17 09:00 06/04/17 09:00 06/04/17 09:00 06/01/17 21:53 Assessment and Plan (1) Schizoaffective disorder Current visit: No Status: Acute Plan: Continue hospitalization, Close observation, Suicide Precautions per unit protocol, Encourage participation in unit milieu, Group Therapy, Monitor sleep, Monitor appetite Additional Plan: Continue with Haldol. We will give benztropine with Haldol to prevent symptoms. Monitor for side effects and encourage patient to participate in therapy and groups if possible. We will coordinate discharge planning with family when patient is stable. Risks, benefits, side effects, alternatives discussed w/pt: Yes Patient agreeable to treatment: Yes Qualifiers: Schizoaffective disorder type: unspecified Qualified Code(s): F25.9 - Schizoaffective disorder, unspecified Consult Discharge Plan - Plan Referrals: Genevieve Chinchilla [facility] [Outside] - 06/07/17 9:30 am (The above appointment is with Umang Grande, counseling case manager. You will also see Hilary Barnard CNP on 06/07/2017 at 10:00am.)
[2017-06-04] MEDS: *HR* LORazepam 1 MG TABLET PO PRN (11:59)
[2017-06-04] MEDS: ARIPiprazole 5 MG TABLET PO SCH (20:09)
[2017-06-04] MEDS: Divalproex (24 HR) 500 MG TABLET PO SCH (20:10)
[2017-06-04] MEDS: cloNIDine HCl 0.1 MG TABLET PO SCH (20:10)
[2017-06-04] MEDS: traZODone 50 MG TABLET PO PRN (20:10)
[2017-06-05] MEDS: Nicotine 21 MG PATCH.TD24 TD SCH (08:55)
--- NOTE | 2017-06-05 11:27 | Psychiatry Progress Note ---
Date of Encounter: 06/05/17 Time of Encounter: 10:00 Subjective Interval history: Cali is seen today for follow-up. He remains agitated and irritable. Patient states that he really needs to leave because he spent $400 on a tattoo. Staff has talked to family and they report that patient does not have an appointment with a tattoo parlor. Outside the hospital patient has been acting bizarrely carrying weapons around. He continues to have difficulty verbalizing his thoughts and does appear to be thought blocking at times. Review of Systems Psychiatric: Reports: anxiety, abnormal sleep pattern, confusion, difficulty concentrating, irritability Objective: Exam Patient orientation: Yes Person Level of alertness: Alert Behavior: agitated, restless, uncooperative Psychomotor activity: Increased Eye contact: Fleeting Contact Mood description: Euthymic/stable Affect description: labile Speech pattern: Slowed, Delayed Speech volume: Normal Thought process: Thought Blocking, Disorganized Thought content: No Suicidal ideation, No Homicidal ideation Perceptual disturbances: Yes Reacting to internal stimuli Judgment: Poor Insight: None Results - Vital Signs Vital Signs: Temp Pulse Resp BP Pulse Ox 97.6 F 73 16 135/69 99 06/05/17 09:00 06/05/17 09:00 06/05/17 09:00 06/05/17 09:00 06/01/17 21:53 Assessment and Plan (1) Schizoaffective disorder Current visit: No Status: Acute Plan: Continue hospitalization, Close observation, Suicide Precautions per unit protocol, Encourage participation in unit milieu, Group Therapy, Monitor sleep, Monitor appetite Additional Plan: Patient is improving slightly back on his regular dose of Haldol. No side effects noted. Continue Depakote at bedtime. Consider changes in inpatient to a second generation antipsychotic. He has done well on Invega in the past. Risks, benefits, side effects, alternatives discussed w/pt: Yes Patient agreeable to treatment: Yes Qualifiers: Schizoaffective disorder type: unspecified Qualified Code(s): F25.9 - Schizoaffective disorder, unspecified Consult Discharge Plan - Plan Referrals: Genevieve Chinchilla [facility] [Outside] - 06/07/17 9:30 am (The above appointment is with Umang Grande, manager of case management. You will also see Hilary Barnard CNP on 06/07/2017 at 10:00am.)
[2017-06-05] MEDS: hydrOXYzine pamoate 25 MG CAPSULE PO PRN ×2 (12:06→20:01)
[2017-06-05] MEDS: Divalproex (24 HR) 500 MG TABLET PO SCH (20:01)
[2017-06-05] MEDS: ARIPiprazole 5 MG TABLET PO SCH (20:01)
[2017-06-05] MEDS: traZODone 50 MG TABLET PO PRN (20:01)
[2017-06-05] MEDS: cloNIDine HCl 0.1 MG TABLET PO SCH (20:02)
[2017-06-05] MEDS: Neosporin OINT 15 GM TUBE TP SCH (20:05)
[2017-06-06] MEDS: hydrOXYzine pamoate 25 MG CAPSULE PO PRN (00:57)
[2017-06-06] MEDS: Nicotine 21 MG PATCH.TD24 TD SCH (10:05)
[2017-06-06] MEDS: Neosporin OINT 15 GM TUBE TP SCH ×3 (10:06→20:17)
[2017-06-06] MEDS: OLANZapine 5 MG TAB.RAPDIS PO SCH ×2 (10:33→20:15)
--- NOTE | 2017-06-06 13:08 | Psychiatry Progress Note ---
Date of Encounter: 06/06/17 Time of Encounter: 12:35 Subjective Interval history: Cali is seen today for follow-up. He is less agitated and fixated on discharge. He would like to be discharged on Saturday because "that is my funday. " He has still been responding to internal stimuli and laughing inappropriately. He is agreeable to transitioning to Zyprexa. After some discussion with mom and patient does not appear that the Haldol has been working that well. Patient is aware that he will be hospitalized until symptoms improve and medication adjustments can be made. He is sleeping well. Review of Systems Psychiatric: Reports: anxiety, abnormal sleep pattern, auditory hallucinations, confusion, difficulty concentrating, irritability. Denies: suicidal ideation, homicidal ideation Objective: Exam Patient orientation: Yes Person, Yes Place Level of alertness: Alert Patient appearance: Appropriate Behavior: guarded Psychomotor activity: Slowed Eye contact: Diverts Contact Mood description: Euthymic/stable Affect description: flat Speech pattern: Normal rate, Normal rhythm, Normal tone Speech volume: Normal Thought process: Thought Blocking, Disorganized Thought content: No Suicidal ideation, No Homicidal ideation Perceptual disturbances: Yes Reacting to internal stimuli, Yes Auditory hallucinations Judgment: Poor Insight: None Results - Vital Signs Vital Signs: Temp Pulse Resp BP Pulse Ox 97.5 F L 52 16 115/78 99 06/06/17 10:07 06/06/17 10:07 06/06/17 10:07 06/06/17 10:07 06/01/17 21:53 Assessment and Plan (1) Schizoaffective disorder Current visit: No Status: Acute Plan: Continue hospitalization, Close observation, Suicide Precautions per unit protocol, Encourage participation in unit milieu, Group Therapy, Monitor sleep, Monitor appetite Additional Plan: We will transition patient to Zyprexa. Tomorrow we will decrease Haldol. Monitor for side effects. Risks, benefits, side effects, alternatives discussed w/pt: Yes Patient agreeable to treatment: Yes Qualifiers: Schizoaffective disorder type: unspecified Qualified Code(s): F25.9 - Schizoaffective disorder, unspecified Consult Discharge Plan - Plan Referrals: Genevieve Olmedo [facility] [Outside] - 06/07/17 9:30 am (The above appointment is with Umang Grande, casework specialist. You will also see Hilary Barnard CNP on 06/07/2017 at 10:00am.)
[2017-06-06] MEDS: traZODone 50 MG TABLET PO PRN (20:15)
[2017-06-06] MEDS: Divalproex (24 HR) 500 MG TABLET PO SCH (20:15)
[2017-06-06] MEDS: cloNIDine HCl 0.1 MG TABLET PO SCH (20:15)
[2017-06-07] MEDS: Nicotine 21 MG PATCH.TD24 TD SCH (08:49)
[2017-06-07] MEDS: OLANZapine 5 MG TAB.RAPDIS PO SCH ×2 (08:49→20:58)
[2017-06-07] MEDS: Neosporin OINT 15 GM TUBE TP SCH ×3 (08:50→21:01)
--- NOTE | 2017-06-07 12:50 | Psychiatry Progress Note ---
Date of Encounter: 06/07/17 Time of Encounter: 12:20 Subjective Interval history: Cali is seen today for follow-up. He is more redirectable today and thought process slightly more organized. He reports he is willing to take medications. Patient still continues to have bizarre thoughts and some paranoia. He is calling his mom to requests to be picked up even though he is not being discharged yet. He denies side effects of the Zyprexa. Review of Systems Psychiatric: Reports: anxiety, abnormal sleep pattern, auditory hallucinations, confusion, difficulty concentrating, irritability. Denies: suicidal ideation, homicidal ideation Objective: Exam Patient orientation: Yes Person, Yes Place Level of alertness: Alert Patient appearance: Appropriate Behavior: calm, guarded Psychomotor activity: Normal Eye contact: Diverts Contact Mood description: Euthymic/stable Affect description: flat Speech pattern: Normal rate, Normal rhythm, Normal tone Speech volume: Normal Thought process: Thought Blocking, [place], Slowed Thinking Thought content: No Suicidal ideation, No Homicidal ideation, Yes Paranoid delusion, Yes Grandiose delusion Perceptual disturbances: Yes Reacting to internal stimuli, No Auditory hallucinations, No Visual hallucinations Judgment: Poor Insight: Minimal Results - Vital Signs Vital Signs: Temp Pulse Resp BP Pulse Ox 98.2 F 67 16 133/79 99 06/06/17 21:00 06/06/17 21:00 06/06/17 21:00 06/06/17 21:00 06/01/17 21:53 Assessment and Plan (1) Schizoaffective disorder Current visit: No Status: Acute Plan: Continue hospitalization, Close observation, Suicide Precautions per unit protocol, Encourage participation in unit milieu, Group Therapy, Monitor sleep, Monitor appetite Additional Plan: Increase Zyprexa. Decrease Haldol. Continue to monitor for side effects. Monitor sleep. Continue hospitalization until symptoms have improved. Risks, benefits, side effects, alternatives discussed w/pt: Yes Patient agreeable to treatment: Yes Qualifiers: Schizoaffective disorder type: unspecified Qualified Code(s): F25.9 - Schizoaffective disorder, unspecified Consult Discharge Plan - Plan Referrals: [facility] [Outside] - 06/13/17 9:30 am (The above appointment is with Umang Grande, disability case manager. You will also see Hilary Barnard CNP on 07/12/2017 at 9:00am.)
[2017-06-07] MEDS: traZODone 50 MG TABLET PO PRN (20:58)
[2017-06-07] MEDS: Divalproex (24 HR) 500 MG TABLET PO SCH (20:58)
--- NOTE | 2017-06-08 08:56 | Psychiatry Progress Note ---
Date of Encounter: 06/08/17 Time of Encounter: 08:45 Subjective Interval history: Cali is seen today for follow-up. He states he is doing better. He is still seen responding to internal stimuli but this appears to be improving over time. He is more cooperative and less irritable. He is sleeping well. He is taking medications when asked. Patient reports that he is able to get along with peers. He is having minimal participation in group. Review of Systems Psychiatric: Reports: anxiety, abnormal sleep pattern, auditory hallucinations, confusion, difficulty concentrating, irritability. Denies: suicidal ideation, homicidal ideation Objective: Exam Patient orientation: Yes Person, Yes Circumstance Level of alertness: Alert Patient appearance: Unkempt Behavior: calm, guarded Psychomotor activity: Slowed Eye contact: Diverts Contact Mood description: Euthymic/stable Affect description: blunted Speech pattern: Slowed Speech volume: Normal Thought process: Thought Blocking, [place], Slowed Thinking Thought content: Yes Paranoid delusion, Yes Grandiose delusion Perceptual disturbances: Yes Reacting to internal stimuli Judgment: Limited Insight: Minimal Results - Vital Signs Vital Signs: Temp Pulse Resp BP Pulse Ox 97.1 F L 47 18 115/66 99 06/07/17 21:00 06/07/17 21:00 06/07/17 21:00 06/07/17 21:00 06/01/17 21:53 Assessment and Plan (1) Schizoaffective disorder Current visit: No Status: Acute Plan: Continue hospitalization, Close observation, Suicide Precautions per unit protocol, Encourage participation in unit milieu, Group Therapy, Monitor sleep, Monitor appetite Additional Plan: Discontinue Haldol and continue Zyprexa. Continue to monitor for side effects. Monitor sleep. Continue hospitalization until symptoms have improved. Risks, benefits, side effects, alternatives discussed w/pt: Yes Patient agreeable to treatment: Yes Qualifiers: Schizoaffective disorder type: unspecified Qualified Code(s): F25.9 - Schizoaffective disorder, unspecified Consult Discharge Plan - Plan Referrals: [facility] [Outside] - 06/13/17 9:30 am (The above appointment is with Umang Grande, sample case porter. You will also see Hilary Barnard CNP on 07/12/2017 at 9:00am.)
[2017-06-08] MEDS: Nicotine 21 MG PATCH.TD24 TD SCH (09:17)
[2017-06-08] MEDS: OLANZapine 5 MG TAB.RAPDIS PO SCH ×2 (09:17→21:38)
[2017-06-08] MEDS: Neosporin OINT 15 GM TUBE TP SCH ×2 (09:19→15:21)
[2017-06-08] MEDS ORDERED: Neosporin OINT 15 GM TUBE TP PRN (15:22)
[2017-06-08] MEDS: hydrOXYzine pamoate 25 MG CAPSULE PO PRN (17:05)
[2017-06-08] MEDS: Divalproex (24 HR) 500 MG TABLET PO SCH (21:39)
[2017-06-08] MEDS: traZODone 50 MG TABLET PO PRN (21:57)
[2017-06-09] MEDS: Nicotine 21 MG PATCH.TD24 TD SCH (09:31)
[2017-06-09] MEDS: OLANZapine 5 MG TAB.RAPDIS PO SCH ×4 (09:31→21:05)
--- NOTE | 2017-06-09 10:46 | Psychiatry Progress Note ---
Date of Encounter: 06/09/17 Time of Encounter: 10:40 Subjective Interval history: Patient was intially sleeping but then asked to speak to this provider. He reports he feels a little better and thinks that is mind is "more clear." Patient's irritability as decreased. He still appears to be thought blocking at times. When asked if he thinks if he needs to take his medications he states" I am not sick." "Just because I think my body has been put through at wood audio visual design engineer doesn't mean I'm am sick. "A fact is a fact and an opinion is an opinion." Review of Systems Psychiatric: Reports: anxiety, abnormal sleep pattern, auditory hallucinations, confusion, difficulty concentrating, irritability. Denies: suicidal ideation, homicidal ideation Objective: Exam Patient orientation: Yes Person, Yes Circumstance Level of alertness: Alert Patient appearance: Unkempt Behavior: guarded, suspicious Psychomotor activity: Slowed Eye contact: Diverts Contact Mood description: Euthymic/stable Affect description: blunted Speech pattern: Normal rate, Normal rhythm, Normal tone Speech volume: Normal Thought process: Thought Blocking, Disorganized Thought content: No Suicidal ideation, No Homicidal ideation, Yes Paranoid delusion Perceptual disturbances: Yes Reacting to internal stimuli, No Auditory hallucinations, No Visual hallucinations Judgment: Limited Insight: None Results - Vital Signs Vital Signs: Temp Pulse Resp BP Pulse Ox 97.6 F 69 16 136/88 99 06/08/17 19:45 06/08/17 19:45 06/08/17 19:45 06/08/17 19:45 06/01/17 21:53 Assessment and Plan (1) Schizoaffective disorder Current visit: No Status: Acute Plan: Continue hospitalization, Close observation, Suicide Precautions per unit protocol, Encourage participation in unit milieu, Group Therapy, Monitor sleep, Monitor appetite Additional Plan: Continue Zpyrexa without Haldol. Patient is showing some improvement. Continue to monitor and plan for d/c when patient is stable. Risks, benefits, side effects, alternatives discussed w/pt: Yes Patient agreeable to treatment: Yes Qualifiers: Schizoaffective disorder type: unspecified Qualified Code(s): F25.9 - Schizoaffective disorder, unspecified Consult Discharge Plan - Plan Referrals: [facility] [Outside] - 06/13/17 9:30 am (The above appointment is with Umang Grande, social work case manager. You will also see Hilary Barnard CNP on 07/12/2017 at 9:00am.)
[2017-06-09] MEDS: Divalproex (24 HR) 500 MG TABLET PO SCH (21:05)
[2017-06-09] MEDS: traZODone 50 MG TABLET PO PRN (21:05)
[2017-06-10] MEDS: OLANZapine 5 MG TAB.RAPDIS PO SCH ×4 (09:25→20:14)
[2017-06-10] MEDS: Nicotine 21 MG PATCH.TD24 TD SCH (09:25)
--- NOTE | 2017-06-10 14:37 | Psychiatry Progress Note ---
Date of Encounter: 06/10/17 Time of Encounter: 14:00 Subjective Interval history: Patient is 21 yr old SWM with h/o Schizoaffective disorder. chart reviewed, case d/w treatment team and meds reviewed. he is still preoccupied, isolative, has attended some groups, he feels zyprexa is helping , denies side effects. states in my dreams i see things and hear them , i see holy spirit, telling me what to do to get out of hospital. i was at my laptop most of the time and my dad asked me if i want to go to hospital and i said no then i said if you want me to go i will go , so i am here , i need to go home now. he is still having a/v martin., he is guarded and paranoid. i have dreamt about cutting my self down and cutting other person down . i woke up and was upset but i am dreaming a lot lately for entire year its been like this. Review of Systems Psychiatric: Reports: anxiety, abnormal sleep pattern, auditory hallucinations, confusion, difficulty concentrating, irritability. Denies: suicidal ideation, homicidal ideation Objective: Exam Patient orientation: Yes Person, Yes Time, Yes Place Level of alertness: Alert Patient appearance: Appropriate Behavior: guarded Psychomotor activity: Slowed Eye contact: Minimal Contact Mood description: Euthymic/stable Affect description: blunted Speech pattern: Slowed Speech volume: Normal Thought process: Thought Blocking Thought content: Yes Preoccupation, Yes Paranoid delusion, Yes Poverty of Content Perceptual disturbances: Yes Auditory hallucinations, Yes Visual hallucinations Judgment: Poor Insight: Partial Results - Vital Signs Vital Signs: Temp Pulse Resp BP Pulse Ox 96.4 F L 88 14 126/89 99 06/10/17 09:00 06/10/17 09:00 06/10/17 09:00 06/10/17 09:00 06/01/17 21:53 Assessment and Plan (1) Schizoaffective disorder Current visit: No Status: Acute Plan: Continue hospitalization, Close observation, Suicide Precautions per unit protocol, Encourage participation in unit milieu, Group Therapy, Monitor sleep, Monitor appetite, Family/Supportive other meeting Additional Plan: will change doses of zyprexa as on 5 mg qid. will start 10 mg bid of zyprexa. get depakote level. Risks, benefits, side effects, alternatives discussed w/pt: Yes Patient agreeable to treatment: Yes Qualifiers: Schizoaffective disorder type: unspecified Qualified Code(s): F25.9 - Schizoaffective disorder, unspecified (2) Abnormal behavior Current visit: Yes Status: Acute Plan: Continue hospitalization, Close observation Risks, benefits, side effects, alternatives discussed w/pt: Yes Patient agreeable to treatment: Yes (3) Visual hallucinations Current visit: Yes Status: Acute Plan: Continue hospitalization, Close observation, Suicide Precautions per unit protocol, Encourage participation in unit milieu, Group Therapy, Monitor sleep, Monitor appetite, Family/Supportive other meeting Risks, benefits, side effects, alternatives discussed w/pt: Yes Patient agreeable to treatment: Yes (4) Auditory hallucinations Current visit: Yes Status: Acute Plan: Continue hospitalization, Close observation, Suicide Precautions per unit protocol, Group Therapy Risks, benefits, side effects, alternatives discussed w/pt: Yes Patient agreeable to treatment: Yes Consult Discharge Plan - Plan [facility] 9:30 am (The above appointment is with Umang Grande, clinical case manager. You will also see Hilary Barnard CNP on 07/12/2017 at 9:00am.)
[2017-06-10] MEDS: traZODone 50 MG TABLET PO PRN (20:14)
[2017-06-10] MEDS: hydrOXYzine pamoate 25 MG CAPSULE PO PRN (20:14)
[2017-06-10] MEDS: Divalproex (24 HR) 500 MG TABLET PO SCH (20:14)
[2017-06-11] MEDS: Nicotine 21 MG PATCH.TD24 TD SCH (09:47)
[2017-06-11] MEDS: OLANZapine 5 MG TAB.RAPDIS PO SCH ×2 (09:47→12:58)
--- NOTE | 2017-06-11 15:41 | Psychiatry Progress Note ---
Date of Encounter: 06/11/17 Time of Encounter: 15:40 Subjective Interval history: Patient seen , case d/w with treatment team , patient has been internally preoccupied and isolative, he has no insight and focused on going home. sleep better, internally preoccupied and no eye contact in session, looking angry. Review of Systems Psychiatric: Reports: anxiety, abnormal sleep pattern, auditory hallucinations, confusion, difficulty concentrating, irritability. Denies: suicidal ideation, homicidal ideation Objective: Exam Patient orientation: Yes Person, Yes Time, Yes Place Level of alertness: Alert Patient appearance: Appropriate Behavior: guarded Psychomotor activity: Normal Eye contact: No Eye Contact Mood description: Angry Affect description: blunted Speech pattern: Slowed Speech volume: Soft/Quiet Thought process: Thought Blocking, [place] Thought content: Yes Paranoid delusion Perceptual disturbances: Yes Reacting to internal stimuli Judgment: Limited Insight: Minimal Results - Vital Signs Vital Signs: Temp Pulse Resp BP Pulse Ox 97.4 F L 57 16 129/66 99 06/11/17 09:00 06/11/17 09:00 06/11/17 09:00 06/11/17 09:00 06/01/17 21:53 Assessment and Plan (1) Schizoaffective disorder Current visit: No Status: Acute Risks, benefits, side effects, alternatives discussed w/pt: Yes Patient agreeable to treatment: Yes Qualifiers: Schizoaffective disorder type: unspecified Qualified Code(s): F25.9 - Schizoaffective disorder, unspecified (2) Abnormal behavior Current visit: Yes Status: Acute Risks, benefits, side effects, alternatives discussed w/pt: Yes Patient agreeable to treatment: Yes (3) Visual hallucinations Current visit: Yes Status: Acute Risks, benefits, side effects, alternatives discussed w/pt: Yes Patient agreeable to treatment: Yes (4) Auditory hallucinations Current visit: Yes Status: Acute Risks, benefits, side effects, alternatives discussed w/pt: Yes Patient agreeable to treatment: Yes Consult Discharge Plan - Plan Referrals: [facility] [Outside] - 06/13/17 9:30 am (The above appointment is with Umang Grande, case loader operator. You will also see Hilary Barnard CNP on 07/12/2017 at 9:00am.)
[2017-06-11] MEDS: OLANZapine 10 MG TAB.RAPDIS PO SCH (20:55)
[2017-06-11] MEDS: traZODone 50 MG TABLET PO PRN (20:55)
[2017-06-11] MEDS: Divalproex (24 HR) 500 MG TABLET PO SCH (20:55)
[2017-06-12] MEDS: OLANZapine 10 MG TAB.RAPDIS PO SCH (12:50)
[2017-06-12] MEDS: Nicotine 21 MG PATCH.TD24 TD SCH (12:50)
--- NOTE | 2017-06-12 13:12 | Psychiatry Progress Note ---
Date of Encounter: 06/12/17 Time of Encounter: 12:30 Subjective Interval history: Patient seen today case d/w treatment team and as per staff he is showing slow improvement and still internally preoccupied and isolative and has not attended all groups. states i do not know why my parents think i hate them , my father told them , i love them and i have counsellor and he will work out things for me, regarding housing, i donot mind living with y parents. denies side effects. i am polythesietic and God showing me how to keep order and showing me agapito man , he sees agapito man , its like video game character. he sometimes tells me bad stuff but Dantae tells me to fight and if you write adam in cursive it is like Dantae. will increase zydis 10 mg am and 15 mg hs, as per him i feel zyprexa working better than haldol. Review of Systems Psychiatric: Reports: anxiety, abnormal sleep pattern, auditory hallucinations, confusion, difficulty concentrating, irritability. Denies: suicidal ideation, homicidal ideation Objective: Exam Patient orientation: Yes Person, Yes Time, Yes Place Level of alertness: Alert Patient appearance: Appropriate Behavior: cooperative Psychomotor activity: Normal Eye contact: Minimal Contact Mood description: Anxious Affect description: blunted Speech pattern: Coherent Speech volume: Normal Thought process: Slowed Thinking Thought content: Yes Paranoid delusion Perceptual disturbances: Yes Auditory hallucinations Judgment: Limited Insight: Partial Results - Vital Signs Vital Signs: Temp Pulse Resp BP Pulse Ox 96.8 F L 47 16 112/74 99 06/12/17 09:50 06/12/17 09:50 06/12/17 09:50 06/12/17 09:50 06/01/17 21:53 Assessment and Plan (1) Schizoaffective disorder Current visit: No Status: Acute Risks, benefits, side effects, alternatives discussed w/pt: Yes Patient agreeable to treatment: Yes Qualifiers: Schizoaffective disorder type: unspecified Qualified Code(s): F25.9 - Schizoaffective disorder, unspecified (2) Abnormal behavior Current visit: Yes Status: Acute Risks, benefits, side effects, alternatives discussed w/pt: Yes Patient agreeable to treatment: Yes (3) Visual hallucinations Current visit: Yes Status: Acute Risks, benefits, side effects, alternatives discussed w/pt: Yes Patient agreeable to treatment: Yes (4) Auditory hallucinations Current visit: Yes Status: Acute Risks, benefits, side effects, alternatives discussed w/pt: Yes Patient agreeable to treatment: Yes Consult Discharge Plan - Plan Referrals: [facility] [Outside] - 06/13/17 9:30 am (The above appointment is with Umang Grande, catalytic case operator. You will also see Hilary Barnard CNP on 07/12/2017 at 9:00am.)
[2017-06-12] MEDS: *HR* LORazepam 1 MG TABLET PO PRN (18:28)
[2017-06-12] MEDS: OLANZapine 5 MG TAB.RAPDIS PO SCH (20:43)
[2017-06-12] MEDS: hydrOXYzine pamoate 25 MG CAPSULE PO PRN (20:44)
[2017-06-12] MEDS: traZODone 50 MG TABLET PO PRN (20:44)
[2017-06-12] MEDS: Divalproex (24 HR) 500 MG TABLET PO SCH (20:44)
[2017-06-12] MEDS ORDERED: OLANZapine 5 MG TAB.RAPDIS PO SCH (21:00)
[2017-06-13] MEDS: OLANZapine 10 MG TAB.RAPDIS PO SCH (09:12)
[2017-06-13] MEDS: Nicotine 21 MG PATCH.TD24 TD SCH (09:13)
--- NOTE | 2017-06-13 13:09 | Psychiatry Progress Note ---
Date of Encounter: 06/13/17 Time of Encounter: 12:50 Subjective Interval history: patient seen today , case d/w staff and treatment team.patient is laughing inppropiately, labile, distracted , was given 2x prn meds his mother came yesterday as per her he has not much improved as still agitated and angry . patient is still having delusions and talking about altman man , very slow improvement , side effects feels dizzy in morning , takes meds with snack. will get valproic acid level and zyprexa increased yesterday. continue monitoring and stabilization. Review of Systems Psychiatric: Reports: anxiety, abnormal sleep pattern, auditory hallucinations, confusion, difficulty concentrating, irritability. Denies: suicidal ideation, homicidal ideation Objective: Exam Patient orientation: Yes Person, Yes Time, Yes Place Level of alertness: Alert Patient appearance: Appropriate Behavior: guarded Psychomotor activity: Increased Eye contact: Avoids Eye Contact Mood description: Anxious Affect description: blunted Speech pattern: Slowed Speech volume: Normal Thought process: Slowed Thinking Thought content: Yes Preoccupation, Yes Paranoid delusion, Yes Grandiose delusion Perceptual disturbances: Yes Reacting to internal stimuli, Yes Auditory hallucinations Judgment: Limited Insight: Minimal Results - Vital Signs Vital Signs: Temp Pulse Resp BP Pulse Ox 96.2 F L 70 16 121/75 99 06/13/17 11:35 06/13/17 11:35 06/13/17 11:35 06/13/17 11:35 06/01/17 21:53 - Labs Labs: Laboratory Results - last 24 hr 06/13/17 11:15 Valproic Acid 50.62 Assessment and Plan (1) Schizoaffective disorder Current visit: No Status: Acute Risks, benefits, side effects, alternatives discussed w/pt: Yes Patient agreeable to treatment: Yes Qualifiers: Schizoaffective disorder type: unspecified Qualified Code(s): F25.9 - Schizoaffective disorder, unspecified (2) Abnormal behavior Current visit: Yes Status: Acute Risks, benefits, side effects, alternatives discussed w/pt: Yes Patient agreeable to treatment: Yes (3) Visual hallucinations Current visit: Yes Status: Acute Risks, benefits, side effects, alternatives discussed w/pt: Yes Patient agreeable to treatment: Yes (4) Auditory hallucinations Current visit: Yes Status: Acute Risks, benefits, side effects, alternatives discussed w/pt: Yes Patient agreeable to treatment: Yes Consult Discharge Plan - Plan Referrals: [facility] [Outside] - 07/02/17 9:30 am (The above appointment is with Umang Grande, lining caser. You will also see Hilary Barnard CNP on 07/12/2017 at 9:00am.)
[2017-06-13] MEDS: Divalproex (24 HR) 500 MG TABLET PO SCH (20:59)
[2017-06-13] MEDS: traZODone 50 MG TABLET PO PRN (21:00)
[2017-06-13] MEDS: OLANZapine 5 MG TAB.RAPDIS PO SCH (21:00)
[2017-06-14] MEDS: Divalproex (12 HR) 250 MG TABLET PO SCH (09:30)
[2017-06-14] MEDS: OLANZapine 10 MG TAB.RAPDIS PO SCH (09:30)
[2017-06-14] MEDS: Nicotine 21 MG PATCH.TD24 TD SCH (09:31)
--- NOTE | 2017-06-14 13:02 | Psychiatry Progress Note ---
Date of Encounter: 06/14/17 Time of Encounter: 12:40 Subjective Interval history: Patient seen today , case d/w staff and treatment team. patient is showing slow improvement, sleep is good said i did not had dreams last night and that is good, still has no eye contact and guarded and keeps to himself. he is internally preoccupied and has delusions. denies side effects at present he is compliant with medications. gets angry when told not discharge today. as focus on discharge and does not feel need to be here. i am ready to go home i do not need to be here because i am not getting exercise i need. Review of Systems Psychiatric: Reports: anxiety, abnormal sleep pattern, auditory hallucinations, confusion, difficulty concentrating, irritability. Denies: suicidal ideation, homicidal ideation Objective: Exam Patient orientation: Yes Person, Yes Time, Yes Place Level of alertness: Alert Patient appearance: Appropriate, Unkempt Behavior: guarded, distractible, withdrawn Psychomotor activity: Slowed Eye contact: Minimal Contact Mood description: Angry Affect description: blunted Speech pattern: Slowed Speech volume: Normal Thought content: Yes Preoccupation, Yes Paranoid delusion, Yes Grandiose delusion Perceptual disturbances: Yes Reacting to internal stimuli Judgment: Limited Insight: Minimal Results - Vital Signs Vital Signs: Temp Pulse Resp BP Pulse Ox 96.3 F L 72 18 130/88 99 06/14/17 09:00 06/14/17 09:00 06/14/17 09:00 06/14/17 09:00 06/01/17 21:53 Assessment and Plan (1) Schizoaffective disorder Current visit: No Status: Acute Risks, benefits, side effects, alternatives discussed w/pt: Yes Patient agreeable to treatment: Yes Qualifiers: Schizoaffective disorder type: unspecified Qualified Code(s): F25.9 - Schizoaffective disorder, unspecified (2) Abnormal behavior Current visit: Yes Status: Acute Risks, benefits, side effects, alternatives discussed w/pt: Yes Patient agreeable to treatment: Yes (3) Visual hallucinations Current visit: Yes Status: Acute Risks, benefits, side effects, alternatives discussed w/pt: Yes Patient agreeable to treatment: Yes (4) Auditory hallucinations Current visit: Yes Status: Acute Risks, benefits, side effects, alternatives discussed w/pt: Yes Patient agreeable to treatment: Yes Consult Discharge Plan - Plan Referrals: [facility] [Outside] - 07/02/17 9:30 am (The above appointment is with Umang Grande, case management assistant. You will also see Hilary Barnard CNP on 07/12/2017 at 9:00am.)
[2017-06-14] MEDS: OLANZapine 5 MG TAB.RAPDIS PO SCH (20:37)
[2017-06-14] MEDS: Divalproex (24 HR) 500 MG TABLET PO SCH (20:37)
[2017-06-14] MEDS: traZODone 50 MG TABLET PO PRN (20:38)
[2017-06-15] MEDS: OLANZapine 10 MG TAB.RAPDIS PO SCH (08:36)
[2017-06-15] MEDS: Nicotine 21 MG PATCH.TD24 TD SCH (08:36)
[2017-06-15] MEDS: Divalproex (12 HR) 250 MG TABLET PO SCH (08:36)
--- NOTE | 2017-06-15 13:17 | Psychiatry Progress Note ---
Date of Encounter: 06/15/17 Time of Encounter: 12:15 Subjective Interval history: Patient seen today states today i am confused bc it is still Saturday. slept better, and i slept all day yesterday and night because it makes time go faster. i need to go home to get some exercise and look for job. i feel one man is talking about me, at times feels threathened. and therefore secluding self. remains delusional and psychotic denies side effects on 25 mg of zydis and depakote, depakote level is in therapeutic range. Review of Systems Psychiatric: Reports: anxiety, abnormal sleep pattern, auditory hallucinations, confusion, difficulty concentrating, irritability. Denies: suicidal ideation, homicidal ideation Objective: Exam Patient orientation: Yes Person, Yes Time, Yes Place Level of alertness: Alert Patient appearance: Unkempt Behavior: cooperative, guarded, distractible Psychomotor activity: Slowed Eye contact: Minimal Contact Mood description: Irritable Affect description: blunted Speech pattern: Slowed Speech volume: Normal Thought process: Thought Blocking, [place] Thought content: Yes Paranoid delusion Perceptual disturbances: Yes Reacting to internal stimuli Judgment: Poor Insight: None Results - Vital Signs Vital Signs: Temp Pulse Resp BP Pulse Ox 97.4 F L 88 16 125/86 99 06/15/17 09:00 06/15/17 09:00 06/15/17 09:00 06/15/17 09:00 06/01/17 21:53 Assessment and Plan (1) Schizoaffective disorder Current visit: No Status: Acute Risks, benefits, side effects, alternatives discussed w/pt: Yes Patient agreeable to treatment: Yes Qualifiers: Schizoaffective disorder type: unspecified Qualified Code(s): F25.9 - Schizoaffective disorder, unspecified (2) Abnormal behavior Current visit: Yes Status: Acute Risks, benefits, side effects, alternatives discussed w/pt: Yes Patient agreeable to treatment: Yes (3) Visual hallucinations Current visit: Yes Status: Acute Risks, benefits, side effects, alternatives discussed w/pt: Yes Patient agreeable to treatment: Yes (4) Auditory hallucinations Current visit: Yes Status: Acute Risks, benefits, side effects, alternatives discussed w/pt: Yes Patient agreeable to treatment: Yes Consult Discharge Plan - Plan [facility] 9:30 am (The above appointment is with Umang Grande, bottle caser. You will also see Hilary Barnard CNP on 07/12/2017 at 9:00am.)
[2017-06-15] MEDS: hydrOXYzine pamoate 25 MG CAPSULE PO PRN (15:01)
[2017-06-15] MEDS: Divalproex (24 HR) 500 MG TABLET PO SCH (20:09)
[2017-06-15] MEDS: traZODone 50 MG TABLET PO PRN (20:09)
[2017-06-15] MEDS: OLANZapine 5 MG TAB.RAPDIS PO SCH (20:09)
[2017-06-16] MEDS: Divalproex (12 HR) 250 MG TABLET PO SCH (09:57)
[2017-06-16] MEDS: OLANZapine 10 MG TAB.RAPDIS PO SCH (09:57)
[2017-06-16] MEDS: Nicotine 21 MG PATCH.TD24 TD SCH (09:58)
--- NOTE | 2017-06-16 13:23 | Psychiatry Progress Note ---
Date of Encounter: 06/16/17 Time of Encounter: 13:01 Subjective Interval history: patient seen today , case d/w staff, remains to himself, internally preoccupied. i am feeling sleepy today , only answering question with yes and no, fine and healthy , no eye contact today. feeling healthy, internally preoccupied , unable to get much from him today. denies side effects. Review of Systems Psychiatric: Reports: anxiety, abnormal sleep pattern, auditory hallucinations, confusion, difficulty concentrating, irritability. Denies: suicidal ideation, homicidal ideation Objective: Exam Patient orientation: Yes Person, Yes Time, Yes Place Level of alertness: Alert Patient appearance: Appropriate Behavior: guarded Psychomotor activity: Normal Eye contact: No Eye Contact Mood description: Other Patient description of mood: hungry Affect description: blunted Speech pattern: Slowed, Limited Speech volume: Soft/Quiet Thought process: Thought Blocking, [place] Thought content: Yes Preoccupation Perceptual disturbances: Yes Reacting to internal stimuli Judgment: Poor Insight: Minimal Results - Vital Signs Vital Signs: Temp Pulse Resp BP Pulse Ox 97 F L 79 16 130/94 99 06/16/17 09:00 06/16/17 09:00 06/16/17 09:00 06/16/17 09:00 06/01/17 21:53 Assessment and Plan (1) Schizoaffective disorder Current visit: No Status: Acute Risks, benefits, side effects, alternatives discussed w/pt: Yes Patient agreeable to treatment: Yes Qualifiers: Schizoaffective disorder type: unspecified Qualified Code(s): F25.9 - Schizoaffective disorder, unspecified (2) Abnormal behavior Current visit: Yes Status: Acute Risks, benefits, side effects, alternatives discussed w/pt: Yes Patient agreeable to treatment: Yes (3) Visual hallucinations Current visit: Yes Status: Acute Risks, benefits, side effects, alternatives discussed w/pt: Yes Patient agreeable to treatment: Yes (4) Auditory hallucinations Current visit: Yes Status: Acute Risks, benefits, side effects, alternatives discussed w/pt: Yes Patient agreeable to treatment: Yes Consult Discharge Plan - Plan Referrals: [facility] [Outside] - 07/02/17 9:30 am (The above appointment is with Umang Grande, case management assistant. You will also see Hilary Barnard CNP on 07/12/2017 at 9:00am.)
[2017-06-16] MEDS: traZODone 50 MG TABLET PO PRN (20:19)
[2017-06-16] MEDS: OLANZapine 5 MG TAB.RAPDIS PO SCH (20:19)
[2017-06-16] MEDS: Divalproex (24 HR) 500 MG TABLET PO SCH (20:19)
[2017-06-17] MEDS: Nicotine 21 MG PATCH.TD24 TD SCH (08:30)
[2017-06-17] MEDS: Divalproex (12 HR) 250 MG TABLET PO SCH (08:31)
[2017-06-17] MEDS: OLANZapine 10 MG TAB.RAPDIS PO SCH (08:31)
--- NOTE | 2017-06-17 14:16 | Psychiatry Progress Note ---
Date of Encounter: 06/17/17 Time of Encounter: 13:15 Subjective Interval history: Patient is here for follow-up. Chart records were reviewed and case discussed with staff. Patient is reported to be self isolating but cooperative with treatment medication were reviewed and currently is taking olanzapine and Depakote. From the records family and patient believe he did well on Haldol Decanoate in the past and this was 100 mg every she reports. At this time I ordered outpatient records to review with plan to reestablish haldol decanoate treatment in addition to Depakote and stabilize the patient's prior to discharge. This was discussed also in probate hearing for probable cause. Review of Systems Psychiatric: Reports: anxiety, abnormal sleep pattern, auditory hallucinations, confusion, difficulty concentrating, irritability. Denies: suicidal ideation, homicidal ideation Objective: Exam Patient orientation: Yes Person, Yes Time, Yes Place Level of alertness: Alert Patient appearance: Appropriate, Well Groomed Behavior: calm, cooperative, guarded, suspicious Psychomotor activity: Normal Eye contact: Avoids Eye Contact Mood description: Anxious, Irritable Affect description: congruent with mood, constricted Speech pattern: Normal rate, Normal rhythm, Normal tone, Limited Speech volume: Normal Thought process: Linear, Goal Oriented, Thought Blocking Thought content: No Suicidal ideation, No Homicidal ideation, Yes Overt delusions Perceptual disturbances: Yes Auditory hallucinations, Yes Visual hallucinations Judgment: Fair Insight: Partial Results - Vital Signs Vital Signs: Temp Pulse Resp BP Pulse Ox 97.3 F L 72 16 116/73 99 06/17/17 09:00 06/17/17 09:00 06/17/17 09:00 06/17/17 09:00 06/01/17 21:53 Assessment and Plan (1) Schizoaffective disorder Current visit: No Status: Acute Plan: Continue hospitalization, Close observation, Suicide Precautions per unit protocol, Encourage participation in unit milieu, Group Therapy, Monitor sleep, Monitor appetite Additional Plan: Will order patient records from the clinic to review and modify his treatment plan as discussed with treatment team. Risks, benefits, side effects, alternatives discussed w/pt: Yes Patient agreeable to treatment: Yes Qualifiers: Schizoaffective disorder type: unspecified Qualified Code(s): F25.9 - Schizoaffective disorder, unspecified Consult Discharge Plan - Plan [facility]17 9:30 am (The above appointment is with Umang Grande, correctional counselor/case manager. You will also see Hilary Barnard CNP on 07/12/2017 at 9:00am.)
[2017-06-17] MEDS: Divalproex (24 HR) 500 MG TABLET PO SCH (21:15)
[2017-06-17] MEDS: traZODone 50 MG TABLET PO PRN (21:16)
[2017-06-17] MEDS: OLANZapine 5 MG TAB.RAPDIS PO SCH (21:16)
[2017-06-17] MEDS: hydrOXYzine pamoate 25 MG CAPSULE PO PRN (21:17)
[2017-06-18] MEDS: OLANZapine 10 MG TAB.RAPDIS PO SCH (09:41)
[2017-06-18] MEDS: Divalproex (12 HR) 250 MG TABLET PO SCH (09:41)
[2017-06-18] MEDS: Nicotine 21 MG PATCH.TD24 TD SCH (09:43)
--- NOTE | 2017-06-18 15:40 | Psychiatry Progress Note ---
Date of Encounter: 06/18/17 Time of Encounter: 15:30 Subjective Interval history: Patient is seen for follow-up with social professionals. I explained to patient that treatment plan changes including restarting him on injectable Haldol Decanoate is delayed because of patient's outpatient records received showed that Haldol Decanoate was discontinued on 04/12/2017 by mother's request. dye house worker contacted mother and expecting a phone call to discuss their concern or rationale that led to discontinuation of the Haldol decannulated which by the patient to [place] was beneficial and stabilizing. Otherwise patient reported good sleep denied any hallucination he is not showing any irritability or agitation compliant with medication and anxious about discharge plans. Review of Systems Psychiatric: Reports: anxiety, abnormal sleep pattern, auditory hallucinations, confusion, difficulty concentrating, irritability. Denies: suicidal ideation, homicidal ideation Objective: Exam Patient orientation: Yes Person, Yes Time, Yes Place Level of alertness: Alert Patient appearance: Appropriate, Well Groomed Behavior: calm, cooperative, guarded Psychomotor activity: Normal Eye contact: Maintains Eye Contact Mood description: Euthymic/stable Affect description: congruent with mood, full range Speech pattern: Normal rate, Normal rhythm, Normal tone Speech volume: Normal Thought process: Linear, Goal Oriented Thought content: No Suicidal ideation, No Homicidal ideation, No Overt delusions Perceptual disturbances: No Auditory hallucinations, No Visual hallucinations Judgment: Fair Insight: Partial Results - Vital Signs Vital Signs: Temp Pulse Resp BP Pulse Ox 96.6 F L 57 14 108/64 99 06/18/17 09:00 06/18/17 09:00 06/18/17 09:00 06/18/17 09:00 06/01/17 21:53 Assessment and Plan (1) Schizoaffective disorder Current visit: No Status: Acute Plan: Continue hospitalization, Close observation, Suicide Precautions per unit protocol, Encourage participation in unit milieu, Group Therapy, Monitor sleep, Monitor appetite Risks, benefits, side effects, alternatives discussed w/pt: Yes Patient agreeable to treatment: Yes Qualifiers: Schizoaffective disorder type: unspecified Qualified Code(s): F25.9 - Schizoaffective disorder, unspecified Consult Discharge Plan - Plan Referrals: [facility] [Outside] - 07/02/17 9:30 am (The above appointment is with Umang Grande, upper caser. You will also see Hilary Prasai- Barnard, STOCK PULLER on 07/12/2017 at 9:00am.)
[2017-06-18] MEDS: OLANZapine 5 MG TAB.RAPDIS PO SCH (20:13)
[2017-06-18] MEDS: Divalproex (24 HR) 500 MG TABLET PO SCH (20:13)
[2017-06-18] MEDS: hydrOXYzine pamoate 25 MG CAPSULE PO PRN (20:47)
[2017-06-18] MEDS: traZODone 50 MG TABLET PO PRN (20:47)
[2017-06-19] MEDS: Divalproex (12 HR) 250 MG TABLET PO SCH (08:42)
[2017-06-19] MEDS: OLANZapine 10 MG TAB.RAPDIS PO SCH (08:42)
[2017-06-19] MEDS: Nicotine 21 MG PATCH.TD24 TD SCH (08:43)
--- NOTE | 2017-06-19 14:09 | Psychiatry Progress Note ---
Date of Encounter: 06/19/17 Time of Encounter: 14:00 Subjective Interval history: Patient seen for follow-up. Case was discussed with treatment team. After reviewing the information provided by high school social science teacher and patient's mother and review of records was decided to start patient on injectable Invega and reducing the dose of olanzapine to obtain the best outcome treatment. This plan was discussed with the patient is agreeable and medication were ordered and will be given as soon as available. Patient is anxious about discharge and I shared with him that his discharge would be coming shortly after establishing this treatment. He is compliant with medication and denies any problem with sleep. Review of Systems Psychiatric: Reports: anxiety, abnormal sleep pattern, auditory hallucinations, confusion, difficulty concentrating, irritability. Denies: suicidal ideation, homicidal ideation Objective: Exam Patient orientation: Yes Person, Yes Time, Yes Place Level of alertness: Alert Patient appearance: Appropriate, Well Groomed Behavior: calm, cooperative, guarded Psychomotor activity: Normal Eye contact: Maintains Eye Contact Mood description: Euthymic/stable, Irritable Affect description: congruent with mood Speech pattern: Normal rate, Normal rhythm, Normal tone, Limited Speech volume: Normal Thought process: Linear, Goal Oriented Thought content: No Suicidal ideation, No Homicidal ideation, No Overt delusions Perceptual disturbances: No Auditory hallucinations, No Visual hallucinations Judgment: Fair Insight: Partial Results - Vital Signs Vital Signs: Temp Pulse Resp BP Pulse Ox 98 F 66 16 133/91 99 06/19/17 09:55 06/19/17 09:55 06/19/17 09:55 06/18/17 20:56 06/01/17 21:53 Assessment and Plan (1) Schizoaffective disorder Current visit: No Status: Acute Plan: Continue hospitalization, Close observation, Suicide Precautions per unit protocol, Encourage participation in unit milieu, Group Therapy, Monitor sleep, Monitor appetite Additional Plan: Updated treatment plan: Patient would be given invegal Sustenna along with his reduced dose of Zyprexa, patient is agreeable to this plan and medication ordered Risks, benefits, side effects, alternatives discussed w/pt: Yes Patient agreeable to treatment: Yes Qualifiers: Schizoaffective disorder type: unspecified Qualified Code(s): F25.9 - Schizoaffective disorder, unspecified Consult Discharge Plan - Plan Referrals: [facility] [Outside] - 07/02/17 9:30 am (The above appointment is with Umang Grande, clinical case manager. You will also see Hilary Barnard CNP on 07/12/2017 at 9:00am.)
[2017-06-19] MEDS: OLANZapine 5 MG TAB.RAPDIS PO SCH (20:37)
[2017-06-19] MEDS: Divalproex (24 HR) 500 MG TABLET PO SCH (20:37)
[2017-06-19] MEDS: traZODone 50 MG TABLET PO PRN (20:37)
[2017-06-19] MEDS: hydrOXYzine pamoate 25 MG CAPSULE PO PRN (20:37)
[2017-06-20] MEDS: Divalproex (12 HR) 250 MG TABLET PO SCH (09:01)
[2017-06-20] MEDS: OLANZapine 10 MG TAB.RAPDIS PO SCH (09:01)
[2017-06-20] MEDS: Nicotine 21 MG PATCH.TD24 TD SCH (09:03)
[2017-06-20] MEDS ORDERED: NON-FORMULARY MEDICATION 1 EACH EACH (Paliperidone Palmitate [Invega Sustenna] 234 MG) IM SCH (11:15)
--- NOTE | 2017-06-20 14:08 | Psychiatry Progress Note ---
Date of Encounter: 06/20/17 Time of Encounter: 14:05 Subjective Interval history: Patient is seen for follow-up today. Nursing staff reported that he was given injection of Invega 234 mg and tolerated the injection. Also Zyprexa was reduced to 15 mg at bedtime. Patient is tolerating medication changes denied any side effects or complaints. He is anxious to be discharged and staying in control and not showing any agitation. His discharge plans are being completed by pediatric social worker and would be reevaluated tomorrow Review of Systems Psychiatric: Reports: anxiety, abnormal sleep pattern, auditory hallucinations, confusion, difficulty concentrating, irritability. Denies: suicidal ideation, homicidal ideation Objective: Exam Patient orientation: Yes Person, Yes Time, Yes Place Level of alertness: Alert Patient appearance: Appropriate, Well Groomed Behavior: calm, cooperative, guarded Psychomotor activity: Normal Eye contact: Maintains Eye Contact Mood description: Euthymic/stable, Irritable Affect description: congruent with mood, full range Speech pattern: Normal rate, Normal rhythm, Normal tone Speech volume: Normal Thought process: Linear, Goal Oriented Thought content: No Suicidal ideation, No Homicidal ideation, No Overt delusions Perceptual disturbances: No Auditory hallucinations, No Visual hallucinations Judgment: Fair Insight: Partial Results - Vital Signs Vital Signs: Temp Pulse Resp BP Pulse Ox 98.4 F 76 18 136/82 99 06/20/17 09:30 06/20/17 09:30 06/20/17 09:30 06/20/17 09:30 06/01/17 21:53 Assessment and Plan (1) Schizoaffective disorder Current visit: No Status: Acute Plan: Continue hospitalization, Close observation, Suicide Precautions per unit protocol, Encourage participation in unit milieu, Group Therapy, Monitor sleep, Monitor appetite Risks, benefits, side effects, alternatives discussed w/pt: Yes Patient agreeable to treatment: Yes Qualifiers: Schizoaffective disorder type: unspecified Qualified Code(s): F25.9 - Schizoaffective disorder, unspecified Consult Discharge Plan - Plan Referrals: [facility] [Outside] - 07/02/17 9:30 am (The above appointment is with Umang Grande, child welfare caseworker. You will also see Hilary Barnard CNP on 07/12/2017 at 9:00am.)
[2017-06-20] MEDS: OLANZapine 5 MG TAB.RAPDIS PO SCH (20:01)
[2017-06-20] MEDS: Divalproex (24 HR) 500 MG TABLET PO SCH (20:01)
[2017-06-20] MEDS: hydrOXYzine pamoate 25 MG CAPSULE PO PRN (20:01)
[2017-06-20] MEDS: traZODone 50 MG TABLET PO PRN (20:02)
[2017-06-21] MEDS: Nicotine 21 MG PATCH.TD24 TD SCH (09:44)
[2017-06-21] MEDS: Divalproex (12 HR) 250 MG TABLET PO SCH (09:44)
[2017-06-21 09:52] VITALS: BP 119/73
--- NOTE | 2017-06-21 10:15 | Discharge Summary ---
Date of Encounter: 06/21/17 Time of Encounter: 10:13 Diagnosis - Discharge Diagnosis (1) Schizoaffective disorder Status: Acute Qualifiers: Schizoaffective disorder type: unspecified Qualified Code(s): F25.9 - Schizoaffective disorder, unspecified Medications - Discharge Medications Prescriptions: Paliperidone Palmitate [Invega Sustenna] 234 mg IM QMONTH #1 syringe cloNIDine HCl [CloNIDine HCl] 0.1 mg PO HS #30 tablet Divalproex (12 HR) [Depakote (12 HR)] 250 mg PO QAM #30 tablet. Divalproex (24 HR) [Depakote ER (24 HR)] 1,000 mg PO HS 30 Days #30 tab.er.24h Ildefonso/Poly/Gregorio OINT [Triple Antibiotic Ointment] 1 appl TP TID PRN #1 tube PRN Reason: healing wound OLANZapine [Zyprexa Zydis] 15 mg PO HS 30 Days #90 tab.rapdis Divalproex (12 HR) [Depakote (12 HR)] 250 mg PO QAM #30 tablet. 06/21/17 [Rx] Divalproex (24 HR) [Depakote ER (24 HR)] 1,000 mg PO HS 30 Days #30 tab.er.24h 06/21/17 [Rx] Ildefonso/Poly/Gregorio OINT [Triple Antibiotic Ointment] 1 appl TP TID PRN #1 tube [Rx] OLANZapine [Zyprexa Zydis] 15 mg PO HS 30 Days #90 tab.rapdis 06/21/17 [Rx] Paliperidone Palmitate [Invega Sustenna] 234 mg IM QMONTH #1 syringe 06/21/17 [ Rx] cloNIDine HCl [CloNIDine HCl] 0.1 mg PO HS #30 tablet 06/21/17 [Rx] 3 Allergy/AdvReac Type Severity Reaction Status Date / Time No Known Allergies Allergy Verified 06/01/17 21:56 Results Procedures and tests throughout hospitalization: Completed Lab Orders Category Date Time Status Valproate Routine Lab 06/13/17 11:15 Completed Provider Date of admission: 06/02/17 00:58 Primary care physician: PCP NONE Discharging clinician: Jaguar Edmond Assessment and Plan - Patient/Caregiver Discharge Instructions Activity: resume usual activities as tolerated Diet: regular diet - Follow up Plan Follow up with: [facility] [Outside] - 07/02/17 9:30 am (The above appointment is with Umang Grande, piano case maker. You will also see Hilary Barnard CNP on 07/12/2017 at 9:00am.) Functional capacity at discharge: independent ambulation Overall status at discharge: Stable Disposition: Home, Self-Care Hospital Course Hospital course: Mr. No is a 21 year old male admitted from the emergency room treatment of schizoaffective disorder with behavioral disturbances increasing paranoia and agitation noncompliance with medication. For details of admission please see H& P On the unit patient was displaying symptoms of paranoia and agitation he was uncooperative and refusing medication at time. His medication has been reviewed and adjusted he was started on olanzapine and his Depakote was increased and level was therapeutic. Patient slowly improved and showing increase cooperation improved sleep and no signs of agitation or irritability. Court hearing was completed to extend patient has to stay and stabilization and after reviewing the patient's notes and discussing his treatment with family [facility] social service agency director it was found out the patient responded in the past treated in the injectable monthly appointments he was given Tirado is a 34 mg IM yesterday and his dose of Zyprexa was adjusted to 15 mg at bedtime in addition to the Depakote patient showed significant improvement and stability and denied any auditory or visual hallucination or suicidal ideation he was medically stable and then discharged in a stable condition. Discharge plans were completed by social work. - Time Spent with Patient Total time spent providing and/or coordinating discharge services: Less than 30 minutes Quality - Multiple Antipsychotics Patient discharged on 2 or more antipsychotic medications: Yes - Justification Documentation of: History 3 failed trials of monotherapy Procedures - Procedures Procedures: Medication Management, Crisis Stabilization, Supportive Therapy, Group Therapy, Psychoeducational Therapy Mental Status Exam - Mental Status Exam Patient orientation: Yes Person, Yes Time, Yes Place Level of alertness: Alert Patient appearance: Appropriate, Well Groomed Behavior: calm, cooperative Psychomotor activity: Normal Eye contact: Maintains Eye Contact Mood description: Euthymic/stable Affect description: congruent with mood, full range Speech pattern: Normal rate, Normal rhythm, Normal tone Speech Volume: Normal Thought process: Linear, Goal Oriented Thought Content: No Suicidal ideation, No Homicidal ideation, No Overt delusions Perceptual Disturbances: No Auditory hallucinations, No Visual hallucinations Judgment: Limited Insight: Partial
== END 2017-06-21 14:10 | disposition home or self-care (01) | DRG 750 ==
LOC: 1ANU 21:51 → EMEROO 21:51 → 1ANU 06-02 00:56 → SUATTDRO 06-02 00:58 → 1ANU 06-02 01:06
PROVIDERS: ADMIT Psychiatry & Neurology Psychiatry; ATTEND Psychiatry & Neurology Psychiatry

== ENCOUNTER 2017-09-13 10:01 | Inpatient (IN) ==
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
[2017-09-13] MEDS ORDERED: Lidocaine/EPI 1:100k 1% 20 ML VIAL INFILT ONE (10:51)
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
[2017-09-13 11:42] LABS: Basophils % 0.3 %; Eosinophils % 0.3 %; Hematocrit 46.1 % (37.5-50.1); Hemoglobin 15.8 g/dL (12.9-16.9); Immature Granulocytes % 0.4 % (0-4); Mean Corpuscular HGB Conc 34.3 g/dL (31.6-35.5); Mean Corpuscular Hemoglobin 29.6 pg (28.0-33.3); Mean Corpuscular Volume 86.5 fL (83.0-100.0); Mean Platelet Volume 10.5 fL (9.4-12.4); Monocytes % 7.9 %; Neutrophils # 9.9 K/mcL (1.6-8.9); Platelet Count 208 K/mcL (140-400); Red Blood Count 5.33 M/mcL (4.19-5.50); Red Cell Distribution Width 12.4 % (11.5-14.5); Segmented Neutrophils % 76.1 %
[2017-09-13 13:49] LABS: Bilirubin,Urine Negative (Negative); Blood,Urine Negative (Negative); Clarity,Urine Clear (Clear); Color,Urine Yellow (Yellow); Glucose,Urine (UA) Normal (Normal); Ketones,Urine Negative (Negative); Leukocyte Esterase,Urine Negative (Negative); Nitrite,Urine Negative (Negative); Protein,Urine Negative (Neg-Trace); Specific Gravity,Urine 1.016 (1.010-1.025); Urobilinogen,Urine Normal (Normal)
[2017-09-13 13:58] LABS: Amphetamine Screen,Urine Negative ng/mL (Cutoff=1000); Barbiturate Screen,Urine Negative ng/mL (Cutoff=200); Benzodiazepines Screen,Urine Negative ng/mL (Cutoff=200); Cannabinoid Screen,Urine Negative ng/mL (Cutoff = 50); Cocaine Screen,Urine Negative ng/mL (Cutoff= 300); Opiate Screen,Urine Negative ng/mL (Cutoff=300); Phencyclidine Screen,Urine Negative ng/mL (Cutoff=25)
[2017-09-13 14:00] LABS: BUN/Creatinine Ratio 7 (6-26); Blood Urea Nitrogen 5 mg/dL (6-20); Carbon Dioxide 26 mEq/L (23-29); Chloride 106 mEq/L (98-107); Glucose 118 mg/dL (70-105); Osmolality,Calculated 284 (280-300); Potassium 3.9 mEq/L (3.5-5.1); Sodium 138 mEq/L (136-145); eGFR For African Americans > 60 (> 60); eGFR For Non-African Americans > 60 (> 60)
[2017-09-13 14:03] LABS: Acetaminophen < 1.0 mcg/mL (10-30); Ethanol < 10 mg/dL (0-10); Salicylate < 5.0 mg/dL (15.0-30.0)
[2017-09-13 15:26] LABS: Valproate 16 mcg/mL (50-100)
[2017-09-13] MEDS ORDERED: cephALEXin 250 MG CAPSULE PO ONE (15:50)
[2017-09-13] MEDS ORDERED: OLANZapine 10 MG TAB.RAPDIS PO ONE (16:04)
[2017-09-13] MEDS ORDERED: *HR* LORazepam 1 MG TABLET PO ONE (16:04)
[2017-09-13] MEDS ORDERED: Mag Hydrox/Al Hydrox/Simeth 30 ML UDC PO PRN (17:06)
[2017-09-13] MEDS ORDERED: *HR* LORazepam 2 MG/ML VIAL IM PRN (17:06)
[2017-09-13] MEDS ORDERED: *HR* LORazepam 1 MG TABLET PO PRN (17:06)
[2017-09-13] MEDS ORDERED: MOM Conc 10 ML UD.LIQ PO PRN (17:06)
[2017-09-13] MEDS ORDERED: Haloperidol Lactate 5 MG/ML VIAL IM PRN (17:06)
[2017-09-13] MEDS: cephALEXin 500 MG CAPSULE PO SCH (23:23)
[2017-09-13] MEDS: Divalproex (24 HR) 500 MG TABLET PO SCH (23:23)
[2017-09-13] MEDS: OLANZapine 5 MG TAB.RAPDIS PO SCH (23:23)
[2017-09-13] MEDS: cloNIDine HCl 0.1 MG TABLET PO SCH (23:23)
[2017-09-14] MEDS: cephALEXin 500 MG CAPSULE PO SCH ×2 (09:48→20:23)
[2017-09-14] MEDS: Divalproex (24 HR) 250 MG TABLET PO SCH (09:48)
[2017-09-14] MEDS ORDERED: Neosporin OINT 15 GM TUBE TP PRN (12:44)
--- NOTE | 2017-09-14 13:19 | Psychiatry History & Physical ---
Date of Encounter: 09/14/17 Time of Encounter: 13:00 History of Present Illness Patient Stated Chief Complaint: "I don't want to talk." Medicare Admission Attestation: For traditional Medicare patients the provided hospital inpatient services are reasonable and necessary and in the case of services not specified as inpatient -only under 42 CFR 419.22 (n), that they are appropriately provided as inpatient services in accordance 42 CFR 412.3. For Critical Access Hospital the patient may reasonably be expected to be discharged or transferred to a hospital within 96 hours after admission to the Critical Access Hospital. Admitted From: Emergency Dept History of Present Illness: Mr. No is a 21 year old male with a history of schizoaffective disorder and multiple psychiatric admissions, most recently in May of this year who presented to the hospital with increasing paranoia and bizarre behavior at home. Patient was apparently watching and action movie and thought that the things going on the movie were really happening. Parents initially reported that patient had been getting his shots in taking his by mouth meds. However his Depakote level was low on arrival to the hospital. It is unlikely he has been taking his daily medications regularly. Patient was agitated in the ER was given medications to calm him down. He has been withdrawn to his room and not willing to speak with staff. Patient was responding to internal stimuli on arrival to the hospital. Past Med Surg Social Fam HX - Past Medical History Medical history: no medical history, other - Past Psychiatric History Psychiatric history: Reports: previous psychiatric hospitalization, other ( Schizoaffective disorder) Past psychiatric history details: Multiple previous psychiatric admissions. Medication noncompliance. Family psychiatric history: No Family History of Suicide: None - Past Surgical History Surgical History: no surgical history - Social History Smoking Status: Current every day smoker Smokeless Tobacco Status: No Alcohol use: occasionally Drug use: marijuana Current living situation: Home - Family History Mother History Unknown: Yes Medications & Allergies RX: Divalproex (24 HR) [Depakote ER (24 HR)] 1,000 mg PO HS 30 Days #30 tab.er.24h 06/21/17 [Rx] RX: Paliperidone Palmitate [Invega Sustenna] 234 mg IM QMONTH #1 syringe [Rx] RX: cloNIDine HCl [CloNIDine HCl] 0.1 mg PO HS #30 tablet 06/21/17 [Rx] Divalproex (24 HR) [Depakote ER (24 HR)] 250 mg PO QAM 09/13/17 [History] OLANZapine [Zyprexa Zydis] 15 mg PO HS 09/13/17 [History] cephALEXin [Keflex] 500 mg PO BID 7 Days #14 capsule 09/13/17 [Rx] 3 Allergy/AdvReac Type Severity Reaction Status Date / Time No Known Allergies Allergy Verified 09/13/17 10:05 Review of Systems ROS unobtainable: due to patient condition Cardiovascular: Denies: chest pain Mental Status Exam Patient orientation: Yes Person Level of alertness: Sedated Patient appearance: Unkempt, Disheveled Behavior: guarded Psychomotor activity: Slowed Eye contact: Diverts Contact Mood description: Other (Patient did not want to discuss mood symptoms) Affect description: flat Speech pattern: Limited, Impoverished Speech volume: Normal Thought process: [place] Perceptual disturbances: Yes Auditory hallucinations Attention span: Capable of Focused Attention Memory description: Grossly Intact Patient reliability: Not Reliable Historian Intelligence estimate: Average Judgment: Poor Insight: None Exam - HEENT Head exam IM: Present: atraumatic (Patient refused further exam) Results - Vital Signs Vital signs: Temp Pulse Resp BP Pulse Ox 97.9 F 87 16 118/78 99 09/14/17 09:00 09/14/17 09:00 09/14/17 09:00 09/14/17 09:00 09/13/17 11:48 - Labs Labs: Laboratory Last Values WBC 13.0 K/mcL (4.3-11.1) H 09/13/17 11:36 RBC 5.33 M/mcL (4.19-5.50) 09/13/17 11:36 Hgb 15.8 g/dL (12.9-16.9) 09/13/17 11:36 Hct 46.1 % (37.5-50.1) 09/13/17 11:36 MCV 86.5 fL (83.0-100.0) 09/13/17 11:36 MCH 29.6 pg (28.0-33.3) 09/13/17 11:36 MCHC 34.3 g/dL (31.6-35.5) 09/13/17 11:36 RDW 12.4 % (11.5-14.5) 09/13/17 11:36 Plt Count 208 K/mcL (140-400) 09/13/17 11:36 MPV 10.5 fL (9.4-12.4) 09/13/17 11:36 Immature Gran % 0.4 % (0-4) 09/13/17 11:36 Seg Neutrophils % 76.1 % 09/13/17 11:36 Lymphocytes % 15.0 % 09/13/17 11:36 Monocytes % 7.9 % 09/13/17 11:36 Eosinophils % 0.3 % 09/13/17 11:36 Basophils % 0.3 % 09/13/17 11:36 Neutrophils # 9.9 K/mcL (1.6-8.9) H 09/13/17 11:36 Lymphocytes # 2.0 K/mcL (0.6-4.6) 09/13/17 11:36 Monocytes # 1.0 K/mcL (0.0-1.3) 09/13/17 11:36 Eosinophils # 0.0 K/mcL (0.0-0.6) 09/13/17 11:36 Basophils # 0.0 K/mcL (0.0-0.2) 09/13/17 11:36 Sodium 138 mEq/L (136-145) 09/13/17 11:36 Potassium 3.9 mEq/L (3.5-5.1) 09/13/17 11:36 Chloride 106 mEq/L (98-107) 09/13/17 11:36 Carbon Dioxide 26 mEq/L (23-29) 09/13/17 11:36 BUN 5 mg/dL (6-20) L 09/13/17 11:36 Creatinine 0.76 mg/dL (0.70-1.30) 09/13/17 11:36 Est GFR ( Amer) > 60 (> 60) 09/13/17 11:36 Est GFR (Non-Af Amer) > 60 (> 60) 09/13/17 11:36 BUN/Creatinine Ratio 7 (6-26) 09/13/17 11:36 Glucose 118 mg/dL (70-105) H 09/13/17 11:36 Calculated Osmolality 284 (280-300) 09/13/17 11:36 Calcium 9.0 mg/dL (8.6-10.3) 09/13/17 11:36 Urine Color Yellow (Yellow) 09/13/17 13:29 Urine Clarity Clear (Clear) 09/13/17 13:29 Urine pH 7.0 pH Units (5.0-8.0) 09/13/17 13:29 Ur Specific [place] 1.016 (1.010-1.025) 09/13/17 13:29 Urine Protein Negative mg/dL (Neg-Trace) 09/13/17 13:29 Urine Glucose (UA) Normal mg/dL (Normal) 09/13/17 13:29 Urine Ketones Negative mg/dL (Negative) 09/13/17 13:29 Urine Blood Negative (Negative) 09/13/17 13:29 Urine Nitrite Negative (Negative) 09/13/17 13:29 Urine Bilirubin Negative (Negative) 09/13/17 13:29 Urine Urobilinogen Normal mg/dL (Normal) 09/13/17 13:29 Ur Leukocyte Esterase Negative (Negative) 09/13/17 13:29 Salicylates < 5.0 mg/dL (15.0-30.0) L 09/13/17 11:36 Urine Opiates Screen Negative ng/mL (Hiysos=273) 09/13/17 13:29 Acetaminophen < 1.0 mcg/mL (10-30) L 09/13/17 11:36 Ur Barbiturates Screen Negative ng/mL (Lyjmyo=167) 09/13/17 13:29 Valproic Acid 16 mcg/mL (50-100) L 09/13/17 11:36 Ur Phencyclidine Scrn Negative ng/mL (Cutoff=25) 09/13/17 13:29 Ur Amphetamines Screen Negative ng/mL (Mlgpuv=8825) 09/13/17 13:29 U Benzodiazepines Scrn Negative ng/mL (Pwlomu=620) 09/13/17 13:29 Urine Cocaine Screen Negative ng/mL (Cutoff= 300) 09/13/17 13:29 U Marijuana (THC) Screen Negative ng/mL (Cutoff = 50) 09/13/17 13:29 Ethyl Alcohol < 10 mg/dL (0-10) 09/13/17 11:36 Assessment and Plan (1) Schizoaffective disorder Current visit: No Status: Acute Plan: Admit inpatient for safety and stabilization, Close observation, Suicide Precautions per unit protocol, Encourage participation in unit milieu, Group Therapy, Monitor sleep, Monitor appetite Additional Plan: Admits to one for psychiatric stabilization. Restart all medications as patient was clearly not taking his outpatient meds appropriately. Monitor for side effects. Risks, benefits, side effects, alternatives discussed w/pt: Yes Patient agreeable to treatment: Yes Qualifiers: Schizoaffective disorder type: unspecified Qualified Code(s): F25.9 - Schizoaffective disorder, unspecified
[2017-09-14] MEDS: hydrOXYzine pamoate 25 MG CAPSULE PO PRN ×3 (14:14→23:53)
[2017-09-14] MEDS: Neosporin OINT 1 APPL PACKET TP PRN ×2 (15:26→19:57)
[2017-09-14] MEDS: Nicotine 14 MG PATCH.TD24 TD SCH (17:54)
[2017-09-14] MEDS: Ibuprofen 400 MG TABLET PO PRN (20:23)
[2017-09-14] MEDS: Divalproex (24 HR) 500 MG TABLET PO SCH (20:23)
[2017-09-14] MEDS: OLANZapine 5 MG TAB.RAPDIS PO SCH (20:23)
[2017-09-14] MEDS: cloNIDine HCl 0.1 MG TABLET PO SCH (20:23)
[2017-09-14] MEDS: traZODone 50 MG TABLET PO PRN (23:53)
[2017-09-15] MEDS: Nicotine 14 MG PATCH.TD24 TD SCH ×2 (09:57→13:44)
[2017-09-15] MEDS: Divalproex (24 HR) 250 MG TABLET PO SCH (09:57)
[2017-09-15] MEDS: cephALEXin 500 MG CAPSULE PO SCH ×2 (09:57→20:07)
--- NOTE | 2017-09-15 10:47 | Psychiatry Progress Note ---
Date of Encounter: 09/15/17 Time of Encounter: 10:15 Subjective Interval history: Attempted to see patient today for follow-up. He is somewhat sedated. He was likely not taking his medications correctly at home and may be reacting to suddenly restarting them. Patient has been more pleasant and cooperative since initial arrival to the hospital. Review of Systems Psychiatric: Reports: auditory hallucinations, visual hallucinations Objective: Exam Patient orientation: Yes Person, Yes Place Level of alertness: Sedated Patient appearance: Unkempt Behavior: other (Sleeping) Psychomotor activity: Slowed Eye contact: Minimal Contact Mood description: Euthymic/stable Affect description: blunted Speech pattern: Slowed Speech volume: Soft/Quiet Thought process: [place] Thought content: No Suicidal ideation, No Homicidal ideation Perceptual disturbances: No Auditory hallucinations, No Visual hallucinations Judgment: Limited Insight: Minimal Results - Vital Signs Vital Signs: Temp Pulse Resp BP Pulse Ox 98.6 F 78 14 135/68 99 09/15/17 09:00 09/15/17 09:00 09/15/17 09:00 09/15/17 09:00 09/13/17 11:48 Assessment and Plan (1) Schizoaffective disorder Current visit: No Status: Acute Plan: Continue hospitalization, Close observation, Suicide Precautions per unit protocol, Encourage participation in unit milieu, Group Therapy, Monitor sleep, Monitor appetite Additional Plan: We will continue to monitor. Patient has had multiple hospitalizations in the past and has a history of not taking his medications. We will redraw Depakote level in the next day or so. Continue to monitor for improvement in delusional thinking. Risks, benefits, side effects, alternatives discussed w/pt: Yes Patient agreeable to treatment: Yes Qualifiers: Schizoaffective disorder type: unspecified Qualified Code(s): F25.9 - Schizoaffective disorder, unspecified Consult Discharge Plan - Plan Referrals: NONE,PCP [Primary Care Provider] -
[2017-09-15] MEDS: OLANZapine 5 MG TAB.RAPDIS PO SCH (20:07)
[2017-09-15] MEDS: cloNIDine HCl 0.1 MG TABLET PO SCH (20:07)
[2017-09-15] MEDS: traZODone 50 MG TABLET PO PRN (20:08)
[2017-09-15] MEDS: Divalproex (24 HR) 500 MG TABLET PO SCH (20:08)
[2017-09-16] MEDS: cephALEXin 500 MG CAPSULE PO SCH ×2 (09:28→21:05)
[2017-09-16] MEDS: Divalproex (24 HR) 250 MG TABLET PO SCH (09:28)
[2017-09-16] MEDS: Nicotine 14 MG PATCH.TD24 TD SCH (09:29)
--- NOTE | 2017-09-16 12:46 | Psychiatry Progress Note ---
Date of Encounter: 09/16/17 Time of Encounter: 12:42 Subjective Interval history: Highly irritable. States if he does not go home today he will hang himself. Denying AH but actively responding to IS while speaking with this junior technical writer. Laughing inappropriately. At one point he became verbally agitated with the voices and said "I did not try to kill myself!" in response to something only he could hear. Unwilling to have much of a conversation today. Still very ill. Review of Systems Constitutional: Denies: fever, chills, weakness, weight change Eyes: Denies: eye pain, vision change Ears, Nose, Throat: Denies: ear pain, throat pain, dental pain, hearing loss, congestion Cardiovascular: Denies: chest pain, palpitations, dyspnea on exertion Respiratory: Denies: cough, dyspnea, wheezes Gastrointestinal: Denies: abdominal pain, nausea, vomiting, diarrhea, constipation Musculoskeletal: Denies: joint swelling, joint pain Neurological: Denies: headache, weakness, numbness, memory loss Psychiatric: Reports: auditory hallucinations, visual hallucinations Objective: Exam Patient orientation: Yes Person, Yes Time, Yes Place Level of alertness: Alert Patient appearance: Disheveled Behavior: uncooperative Psychomotor activity: Normal Eye contact: Minimal Contact Mood description: Angry Affect description: congruent with mood Speech pattern: Normal rate Speech volume: Loud Thought process: Goal Oriented Thought content: Yes Suicidal ideation Perceptual disturbances: Yes Reacting to internal stimuli Judgment: Limited Insight: Minimal Results - Vital Signs Vital Signs: Temp Pulse Resp BP Pulse Ox 96.8 F L 76 16 124/78 99 09/16/17 09:00 09/16/17 09:00 09/16/17 09:00 09/16/17 09:00 09/13/17 11:48 Assessment and Plan (1) Schizoaffective disorder Current visit: No Status: Acute Plan: Continue hospitalization, Close observation, Suicide Precautions per unit protocol, Encourage participation in unit milieu, Group Therapy, Monitor sleep, Monitor appetite Risks, benefits, side effects, alternatives discussed w/pt: Yes Patient agreeable to treatment: Yes Qualifiers: Schizoaffective disorder type: unspecified Qualified Code(s): F25.9 - Schizoaffective disorder, unspecified Consult Discharge Plan - Plan Referrals: NONE,PCP [Primary Care Provider] -
[2017-09-16] MEDS ORDERED: Nicotine 14 MG PATCH.TD24 TD ONE (18:24)
[2017-09-16] MEDS: OLANZapine 5 MG TAB.RAPDIS PO SCH (21:03)
[2017-09-16] MEDS: Divalproex (24 HR) 500 MG TABLET PO SCH (21:05)
[2017-09-16] MEDS: cloNIDine HCl 0.1 MG TABLET PO SCH (21:05)
[2017-09-16] MEDS: traZODone 50 MG TABLET PO PRN (21:05)
[2017-09-16] MEDS: Ibuprofen 400 MG TABLET PO PRN (21:05)
[2017-09-17] MEDS: hydrOXYzine pamoate 25 MG CAPSULE PO PRN (01:23)
[2017-09-17] MEDS: Nicotine 14 MG PATCH.TD24 TD SCH (08:28)
[2017-09-17] MEDS: Divalproex (24 HR) 250 MG TABLET PO SCH (08:30)
[2017-09-17] MEDS: cephALEXin 500 MG CAPSULE PO SCH ×2 (08:30→20:24)
[2017-09-17] MEDS: Ibuprofen 400 MG TABLET PO PRN ×2 (08:49→20:24)
--- NOTE | 2017-09-17 13:56 | Psychiatry Progress Note ---
Date of Encounter: 09/17/17 Time of Encounter: 13:53 Subjective Interval history: Definitely in a better mood today. Apologetic for behavior yesterday. However , he is still very psychotic. Actively responding to voices while speaking with this newswriter. Thought blocking. Delayed and occasionally unrelated responses to questions. It is concerning how symptomatic he is given how young he is and how much medication he is already taking. Sees the hand surgeon tomorrow. Will increase antipsychotic tonight. Will also reach out to family tomorrow and get a sense of how near client is to his baseline. Denying SI today although voices tell him to hurt himself. Client states he hears command hallucinations all of the time but that he just ignores them. Has not acted out on the unit. Review of Systems Constitutional: Denies: fever, chills, weakness, weight change Eyes: Denies: eye pain, vision change Ears, Nose, Throat: Denies: ear pain, throat pain, dental pain, hearing loss, congestion Cardiovascular: Denies: chest pain, palpitations, dyspnea on exertion Respiratory: Denies: cough, dyspnea, wheezes Gastrointestinal: Denies: abdominal pain, nausea, vomiting, diarrhea, constipation Musculoskeletal: Denies: joint swelling, joint pain Neurological: Denies: headache, weakness, numbness, memory loss Psychiatric: Reports: auditory hallucinations, visual hallucinations Objective: Exam Patient orientation: Yes Person, Yes Time, Yes Place Level of alertness: Alert Patient appearance: Appropriate Behavior: calm, cooperative Psychomotor activity: Normal Eye contact: Fleeting Contact Mood description: Irritable Affect description: congruent with mood Speech pattern: Delayed Speech volume: Normal Thought process: Thought Blocking Thought content: No Suicidal ideation, No Homicidal ideation Perceptual disturbances: Yes Reacting to internal stimuli, Yes Auditory hallucinations Judgment: Limited Insight: Minimal Results - Vital Signs Vital Signs: Temp Pulse Resp BP Pulse Ox 98.6 F 101 77 124/84 99 09/17/17 08:34 09/16/17 19:58 09/17/17 08:34 09/17/17 08:34 09/13/17 11:48 Assessment and Plan (1) Schizoaffective disorder Current visit: No Status: Acute Plan: Continue hospitalization, Close observation, Suicide Precautions per unit protocol, Encourage participation in unit milieu, Group Therapy, Monitor sleep, Monitor appetite Risks, benefits, side effects, alternatives discussed w/pt: Yes Patient agreeable to treatment: Yes Qualifiers: Schizoaffective disorder type: unspecified Qualified Code(s): F25.9 - Schizoaffective disorder, unspecified Consult Discharge Plan - Plan Referrals: NONE,PCP [Primary Care Provider] -
[2017-09-17] MEDS: cloNIDine HCl 0.1 MG TABLET PO SCH (20:24)
[2017-09-17] MEDS: traZODone 50 MG TABLET PO PRN (20:24)
[2017-09-17] MEDS: OLANZapine 10 MG TAB.RAPDIS PO SCH (20:24)
[2017-09-17] MEDS: Divalproex (24 HR) 500 MG TABLET PO SCH (20:24)
[2017-09-18] MEDS: cephALEXin 500 MG CAPSULE PO SCH ×2 (08:22→20:41)
[2017-09-18] MEDS: Divalproex (24 HR) 250 MG TABLET PO SCH (08:22)
[2017-09-18] MEDS: Nicotine 14 MG PATCH.TD24 TD SCH (08:22)
--- NOTE | 2017-09-18 12:20 | Psychiatry Progress Note ---
Date of Encounter: 09/18/17 Time of Encounter: 12:09 Subjective Interval history: Still psychotic but less active responding to IS when interacting with this chart writer. Dose increase last night may have helped. Staff spoke with mother. She visited last night and indicated she feels Cali is doing well. It seems he is psychotic at his baseline and mother feels comfortable managing his psychosis. Her biggest concern is that Cali recently became aggressive with his father and he has never done this before. Cali has not been aggressive in the hospital. Told this chart writer today that he acted out because his father removed the stitches in his hand and his hand started bleeding and his father would not take him to the ER for help. Unclear how true this is. Mother reports father is a heroin addict. Drug use is likely impacting their relationship. Drug use is likely also impacting Cali's med compliance as his mother reports Cali's father is responsible for dispensing Cali's meds to him. Mother works long hours and is the only one to work outside the home. She is comfortable having Cali home provided the aggression is no longer a problem. No way to predict this. He is not physically aggressive in the hospital but the issues at home are troubling and may precipitate another outburst. Mother reports she does not want Cali to go to a fci and the rest of the family is supportive but don't feel comfortable managing Cali's psychosis. Cali would benefit from a guardian but family does not want to assume this role and the [facility] board/attorneys are not assuming this role. Mother is not interested in pursuing POA at this time. Will look into home health but family may not agree. [place] far out for family service caseworker to come by regularly. Options are limited. Will likely go home tomorrow after hand surgeon sees him and offers recommendations. Client denies SI/HI. Also denies AH but clearly has them. Review of Systems Constitutional: Denies: fever, chills, weakness, weight change Eyes: Denies: eye pain, vision change Ears, Nose, Throat: Denies: ear pain, throat pain, dental pain, hearing loss, congestion Cardiovascular: Denies: chest pain, palpitations, dyspnea on exertion Respiratory: Denies: cough, dyspnea, wheezes Gastrointestinal: Denies: abdominal pain, nausea, vomiting, diarrhea, constipation Musculoskeletal: Denies: joint swelling, joint pain Neurological: Denies: headache, weakness, numbness, memory loss Psychiatric: Reports: auditory hallucinations, visual hallucinations Objective: Exam Patient orientation: Yes Person, Yes Time, Yes Place Level of alertness: Alert Patient appearance: Appropriate, Well Groomed Behavior: calm, cooperative Psychomotor activity: Normal Eye contact: Minimal Contact Mood description: Irritable Affect description: congruent with mood Speech pattern: Normal rate, Normal rhythm, Normal tone Speech volume: Normal Thought process: Goal Oriented Thought content: No Suicidal ideation, No Homicidal ideation, No Overt delusions Perceptual disturbances: Yes Reacting to internal stimuli Judgment: Limited Insight: Minimal Results - Vital Signs Vital Signs: Temp Pulse Resp BP Pulse Ox 98.3 F 109 18 150/98 99 09/17/17 20:06 09/17/17 20:06 09/17/17 20:06 09/17/17 20:06 09/13/17 11:48 Assessment and Plan (1) Schizoaffective disorder Current visit: No Status: Acute Plan: Continue hospitalization, Close observation, Suicide Precautions per unit protocol, Encourage participation in unit milieu, Group Therapy, Monitor sleep, Monitor appetite Risks, benefits, side effects, alternatives discussed w/pt: Yes Patient agreeable to treatment: Yes Qualifiers: Schizoaffective disorder type: unspecified Qualified Code(s): F25.9 - Schizoaffective disorder, unspecified Consult Discharge Plan - Plan Referrals: NONE,PCP [Primary Care Provider] -
--- NOTE | 2017-09-18 13:06 | Orthopedic Consult Note ---
Date of Encounter: 09/18/17 Time of Encounter: 12:30 Assessment and Plan (1) Hand injury Current Visit: Yes Status: Acute Patient was also evaluated by Dr. Jones while patient was in the ER. No s/s infection to left palmar surface. Continue local wound care gently washing incision with soap/water 3xday and reapplying new dry gauze pressure dressings each time until incision is fully healed. Continue ROM of hand as tolerated. Follow up with PCP or sports medicine in 1 week for wound check. Qualifiers: Encounter type: initial encounter Laterality: left Qualified Code(s): S69.92XA - Unspecified injury of left wrist, hand and finger(s), initial encounter History of Present Illness Chief complaint: left hand pain HPI: Mr. No is a 21 year old male who presented to the ER for possible hand abscess and psychiatric symptoms on 09/13/17. Patient states a knife went into his hand 2-3 weeks ago and was sutured at that time. States his father removed his sutures and has had a raised area to incision since that time. In the ER and incision was made over raised area to drain a possible abscess, area bled profusely from probable hematoma, pressure dressing applied. Patient denies any stiffness to hand or wrist. Denies any numbness. Denies any drainage from wound , denies fevers or any other symptoms of infection. Past Med Surg Social Fam HX - Past Medical History Medical history: no medical history, other Psychiatric history: previous psychiatric hospitalization, other ( Schizoaffective disorder) - Past Surgical History Surgical History: no surgical history - Social History Smoking Status: Current every day smoker Packs per day: 1 Smokeless Tobacco Status: No Alcohol use: occasionally Drug use: marijuana - Family History Mother History Unknown: Yes Medications and Allergies Divalproex (24 HR) [Depakote ER (24 HR)] 1,000 mg PO HS 30 Days #30 tab.er.24h 06/21/17 [Rx] Paliperidone Palmitate [Invega Sustenna] 234 mg IM QMONTH #1 syringe 06/21/17 [ Rx] cloNIDine HCl [CloNIDine HCl] 0.1 mg PO HS #30 tablet 06/21/17 [Rx] Divalproex (24 HR) [Depakote ER (24 HR)] 250 mg PO QAM 09/13/17 [History] OLANZapine [Zyprexa Zydis] 15 mg PO HS 09/13/17 [History] cephALEXin [Keflex] 500 mg PO BID 7 Days #14 capsule 09/13/17 [Rx] 3 Allergy/AdvReac Type Severity Reaction Status Date / Time No Known Allergies Allergy Verified 09/13/17 10:05 All Systems Reviewed: A 10-system review of systems was performed and is negative for pertinent findings except as documented above in the HPI. - Constitutional Constitutional: as per HPI - Musculoskeletal Musculoskeletal: as per HPI Physical Exam - Constitutional Vitals: Temp Pulse Resp BP Pulse Ox 98.3 F 109 18 150/98 99 09/17/17 20:06 09/17/17 20:06 09/17/17 20:06 09/17/17 20:06 09/13/17 11:48 - Wrist & Hand left Location of pain: palmar hand (Roughly 2cm open incision to palmar surface with no active drainage or bleeding, no surorunding erythema, mild swelling. Tenderness to palpation, Full ROM of hands, NV intact) Results - Labs Result Diagrams: 09/13/17 11:36 09/13/17 11:36 Labs: Abnormal lab results WBC 13.0 K/mcL (4.3-11.1) H 09/13/17 11:36 Neutrophils # 9.9 K/mcL (1.6-8.9) H 09/13/17 11:36 BUN 5 mg/dL (6-20) L 09/13/17 11:36 Glucose 118 mg/dL (70-105) H 09/13/17 11:36 Salicylates < 5.0 mg/dL (15.0-30.0) L 09/13/17 11:36 Acetaminophen < 1.0 mcg/mL (10-30) L 09/13/17 11:36 Valproic Acid 16 mcg/mL (50-100) L 09/13/17 11:36 All other labs normal. Consult Discharge Plan - Plan Referrals: NONE,PCP [Primary Care Provider] - - Attending Attestation Case and plan of care discussed with supervising physician who was available for all aspects of care.
[2017-09-18] MEDS: Ibuprofen 400 MG TABLET PO PRN (18:26)
[2017-09-18] MEDS: cloNIDine HCl 0.1 MG TABLET PO SCH (20:41)
[2017-09-18] MEDS: OLANZapine 10 MG TAB.RAPDIS PO SCH (20:41)
[2017-09-18] MEDS: hydrOXYzine pamoate 25 MG CAPSULE PO PRN (20:41)
[2017-09-18] MEDS: traZODone 50 MG TABLET PO PRN (20:41)
[2017-09-18] MEDS: Divalproex (24 HR) 500 MG TABLET PO SCH (20:41)
[2017-09-18] MEDS ORDERED: Divalproex (24 HR) 250 MG TABLET PO SCH (21:00)
[2017-09-19] MEDS: cephALEXin 500 MG CAPSULE PO SCH (09:32)
[2017-09-19] MEDS: Nicotine 14 MG PATCH.TD24 TD SCH (09:49)
[2017-09-19 11:51] VITALS: BP 106/56
--- NOTE | 2017-09-19 12:58 | Discharge Summary ---
Date of Encounter: 09/19/17 Time of Encounter: 12:54 Diagnosis - Discharge Diagnosis (1) Schizoaffective disorder Status: Acute Qualifiers: Schizoaffective disorder type: unspecified Qualified Code(s): F25.9 - Schizoaffective disorder, unspecified Medications - Discharge Medications Prescriptions: cephALEXin [Keflex] 500 mg PO BID #3 capsule Divalproex (24 HR) [Depakote ER (24 HR)] 250 mg PO HS #10 tab.er.24h Divalproex (24 HR) [Depakote ER (24 HR)] 1,000 mg PO HS #20 tab.er.24h OLANZapine [Zyprexa Zydis] 20 mg PO HS #20 tab.rapdis Paliperidone Palmitate [Invega Sustenna] 234 mg IM QMONTH #1 syringe 06/21/17 [ Rx] cloNIDine HCl [CloNIDine HCl] 0.1 mg PO HS #30 tablet 06/21/17 [Rx] cephALEXin [Keflex] 500 mg PO BID 7 Days #14 capsule 09/13/17 [Rx] Divalproex (24 HR) [Depakote ER (24 HR)] 1,000 mg PO HS #20 tab.er.24h 09/19/17 [Rx] Divalproex (24 HR) [Depakote ER (24 HR)] 250 mg PO HS #10 tab.er.24h 09/19/17 [ Rx] OLANZapine [Zyprexa Zydis] 20 mg PO HS #20 tab.rapdis 09/19/17 [Rx] cephALEXin [Keflex] 500 mg PO BID #3 capsule 09/19/17 [Rx] 3 Allergy/AdvReac Type Severity Reaction Status Date / Time No Known Allergies Allergy Verified 09/13/17 10:05 Provider Date of admission: 09/13/17 16:24 Primary care physician: PCP NONE Consults: 09/15/17 12:30 Consult to Hospitalist [CONS] Stat Consulting Provider: [facility] Reason for Consult: profuse bleeding from hand wound Call Completed: Yes 09/18/17 11:35 Consult to Physician [CONS] Stat Consulting Provider: Henry Jones Reason for Consult: Pt was seen in the ED for his left hand. Looking at discharging the patient from psychiatric service on 09/19/17 Time Notified: 11:37 Call Completed: No Discharging clinician: Rylee Noaln Assessment and Plan - Patient/Caregiver Discharge Instructions Activity: resume usual activities as tolerated Diet: regular diet Additional Instructions: Continue local wound care gently washing incision with soap/water 3xday and reapplying new dry gauze pressure dressings each time until incision is fully healed. - [facility] 10:30 am (The above appointment is with Hilary Mitchell for outpatient psychiatric assessment and medication management services. You will also see Faiza Trejo on 10/09/2017 at 9:45 AM for nursing and case management services.) Titi Lindsey MD [Partnered Physician] - 09/20/17 9:30 am (Pt to see Dr. Lindsey in [facility] office at [address] for follow up on your hand ) Functional capacity at discharge: independent ambulation Overall status at discharge: Stable Disposition: Home, Self-Care Hospital Course Hospital course: Mr. No is a 21 year old male who was admitted secondary to psychosis. He improved with an increase in his antipsychotic. Client was still responding to IS at the time of discharge but his responding was less dramatic. Family indicated they are comfortable with his psychosis and feel safe managing him at home. They were uncomfortable with the fact that client had recently become aggressive. Client was never aggressive in the hospital and denied thoughts of wanting to hurt himself or others at the time of discharge. The hand surgeon came to see him yesterday and indicated his hand looks good with no signs of infection. They provided cleaning and wrapping instructions and recommended follow up in a week. All of clients medications were moved to to help with compliance. Staff are concerned his father may not have been dispensing his meds correctly at home due to his own substance abuse issues. Hopefully, having the meds at will foster increased compliance. Client takes a long acting injectable but needs more based on his symptoms. Client was denying SI/ HI at the time of discharge. - Time Spent with Patient Total time spent providing and/or coordinating discharge services: Quality - Multiple Antipsychotics Patient discharged on 2 or more antipsychotic medications: No Procedures - Procedures Procedures: Medication Management, Crisis Stabilization, Supportive Therapy, Group Therapy Mental Status Exam - Mental Status Exam Patient orientation: Yes Person, Yes Time, Yes Place Level of alertness: Alert Patient appearance: Appropriate, Well Groomed Behavior: calm, cooperative Psychomotor activity: Normal Eye contact: Minimal Contact Mood description: Irritable Affect description: congruent with mood Speech pattern: Normal rate, Normal rhythm, Normal tone Speech Volume: Normal Thought process: Goal Oriented Thought Content: No Suicidal ideation, No Homicidal ideation, No Overt delusions Perceptual Disturbances: Yes Reacting to internal stimuli Judgment: Limited Insight: Minimal
== END 2017-09-19 14:00 | disposition home or self-care (01) | DRG 750 ==
LOC: EMEROO 10:01 → 1ANU 16:24
PROVIDERS: ADMIT Student in an Organized Health Care Education/Training Program; ATTEND Student in an Organized Health Care Education/Training Program

== ENCOUNTER 2021-04-01 14:17 | Inpatient (IN) ==
[2021-04-01 15:00] LABS: Bacteria,Urine Few per hpf (None-Few); Bilirubin,Urine Negative (Negative); Blood,Urine Negative (Negative); Clarity,Urine Clear (Clear); Color,Urine Yellow (Yellow); Glucose,Urine (UA) Normal (Normal); Hyaline Casts,Urine Moderate per lpf (None Seen); Ketones,Urine Negative (Negative); Leukocyte Esterase,Urine Negative (Negative); Mucus,Urine Few per lpf (None-Few); Nitrite,Urine Negative (Negative); PH,Urine 6.5 pH Units (5.0-8.0); Protein,Urine 50 mg/dL (Neg-Trace); RBC,Urine 0-3 per hpf (0-3); Specific Gravity,Urine 1.019 (1.010-1.025); Urobilinogen,Urine Normal (Normal); WBC,Urine 0-3 per hpf (0-3)
[2021-04-01 15:05] LABS: Amphetamine Screen,Urine Negative ng/mL (Cutoff=1000); Barbiturate Screen,Urine Negative ng/mL (Cutoff=200); Benzodiazepines Screen,Urine Negative ng/mL (Cutoff=200); Cannabinoid Screen,Urine Negative ng/mL (Cutoff = 50); Cocaine Screen,Urine Negative ng/mL (Cutoff= 300); Opiate Screen,Urine Negative ng/mL (Cutoff=300); Phencyclidine Screen,Urine Negative ng/mL (Cutoff=25)
[2021-04-01 15:06] LABS: Basophils % 0.4 %; Eosinophils # 0.1 K/mcL (0.0-0.6); Eosinophils % 0.8 %; Hematocrit 43.2 % (37.5-50.1); Immature Granulocytes % 0.4 % (0-4); Lymphocytes # 2.8 K/mcL (0.6-4.6); Lymphocytes % 25.1 %; Mean Corpuscular HGB Conc 34.7 g/dL (31.6-35.5); Mean Corpuscular Hemoglobin 30.5 pg (28.0-33.3); Mean Platelet Volume 11.5 fL (9.4-12.4); Monocytes # 1.1 K/mcL (0.0-1.3); Monocytes % 9.6 %; Neutrophils # 7.2 K/mcL (1.6-8.9); Platelet Count 218 K/mcL (140-400); Red Blood Count 4.91 M/mcL (4.19-5.50); Segmented Neutrophils % 63.7 %; White Blood Count 11.3 K/mcL (4.3-11.1)
[2021-04-01 15:11] LABS: Estimated Average Glucose 114 mg/dl; Hemoglobin A1C 5.6 %
[2021-04-01 15:18] LABS: Acetaminophen < 10 mcg/mL (10-20); BUN/Creatinine Ratio 6 (6-26); Blood Urea Nitrogen 5 mg/dL (6-20); Calcium 9.7 mg/dL (8.6-10.3); Carbon Dioxide 22 mEq/L (23-29); Chloride 104 mEq/L (98-107); Chol/HDL Ratio 7.8 (0-4.9); Cholesterol 195 mg/dL (< 200); Ethanol < 10 mg/dL (Less than 10); Glucose 100 mg/dL (70-105); HDL Cholesterol 25 mg/dL (40-59); Osmolality,Calculated 281 (280-300); Potassium 3.7 mEq/L (3.5-5.1); Salicylate < 2.5 mg/dL (15.0-30.0); Sodium 137 mEq/L (136-145); Triglycerides 437 mg/dL (< 150); eGFR For African Americans > 60 (> 60); eGFR For Non-African Americans > 60 (> 60)
[2021-04-01] MEDS ORDERED: *HR* LORazepam 2 MG/ML VIAL IM PRN (17:21)
[2021-04-01] MEDS ORDERED: Haloperidol Lactate 5 MG/ML VIAL IM PRN (17:21)
[2021-04-01] MEDS ORDERED: haloperidoL 5 MG TABLET PO PRN (17:21)
[2021-04-01] MEDS ORDERED: *HR* LORazepam 1 MG TABLET PO PRN (17:21)
[2021-04-01] MEDS: traZODone 50 MG TABLET PO SCH (20:33)
[2021-04-01] MEDS: Divalproex (12 HR) 500 MG TABLET PO SCH (20:33)
[2021-04-01] MEDS: hydrOXYzine pamoate 25 MG CAPSULE PO PRN (20:34)
[2021-04-01] MEDS: Acetaminophen 325 MG TABLET PO PRN (20:34)
[2021-04-01] MEDS: OLANZapine 10 MG TAB.RAPDIS PO SCH (20:34)
[2021-04-02] MEDS: Nicotine 21 MG PATCH.TD24 TD SCH (19:39)
[2021-04-02] MEDS ORDERED: MOM Conc 10 ML UD.LIQ PO PRN (20:23)
[2021-04-02] MEDS ORDERED: Mag Hydrox/Al Hydrox/Simeth 30 ML UDC PO PRN (20:23)
[2021-04-02] MEDS: traZODone 50 MG TABLET PO SCH (20:45)
[2021-04-02] MEDS: OLANZapine 10 MG TAB.RAPDIS PO SCH (20:45)
[2021-04-02] MEDS: Divalproex (12 HR) 500 MG TABLET PO SCH (20:46)
[2021-04-03] MEDS: Nicotine 21 MG PATCH.TD24 TD SCH (12:24)
[2021-04-03] MEDS: Acetaminophen 325 MG TABLET PO PRN (13:49)
[2021-04-03] MEDS: hydrOXYzine pamoate 25 MG CAPSULE PO PRN ×2 (16:16→20:30)
[2021-04-03] MEDS: traZODone 50 MG TABLET PO SCH (20:30)
[2021-04-03] MEDS: Divalproex (12 HR) 500 MG TABLET PO SCH (20:30)
[2021-04-03] MEDS: OLANZapine 10 MG TAB.RAPDIS PO SCH (20:30)
[2021-04-03] MEDS ORDERED: Ibuprofen 800 MG TABLET PO PRN (21:00)
[2021-04-03] MEDS ORDERED: Ibuprofen 800 MG TABLET PO SCH (21:00)
[2021-04-04] MEDS: Nicotine 21 MG PATCH.TD24 TD SCH (10:35)
[2021-04-04] MEDS: OLANZapine 5 MG TAB.RAPDIS PO SCH (10:35)
[2021-04-04] MEDS ORDERED: Nicotine 21 MG PATCH.TD24 TD SCH (12:00)
[2021-04-04] MEDS: OLANZapine 10 MG TAB.RAPDIS PO SCH (20:16)
[2021-04-04] MEDS: Divalproex (12 HR) 500 MG TABLET PO SCH (20:17)
[2021-04-04] MEDS: traZODone 50 MG TABLET PO SCH (20:17)
[2021-04-04 20:44] VITALS: O2SAT 98
[2021-04-05 08:53] LABS: Thyroid Stimulating Hormone 3.586 mcIU/mL (0.340-5.600)
[2021-04-05] MEDS: OLANZapine 5 MG TAB.RAPDIS PO SCH (08:54)
[2021-04-05] MEDS: Nicotine 21 MG PATCH.TD24 TD SCH (09:14)
[2021-04-05 10:48] VITALS: BP 116/70; PULSE 82; TEMP 96.9
[2021-04-05] MEDS: hydrOXYzine pamoate 25 MG CAPSULE PO PRN (14:45)
== END 2021-04-05 15:55 | disposition home or self-care (01) | DRG 750 ==
LOC: EMEROOARM 14:17 → 1ANU 16:51 → INTOOBSV 16:51 → 1ANU 17:47
PROVIDERS: ADMIT Psychiatry & Neurology Psychiatry; ATTEND Psychiatry & Neurology Psychiatry